=== PATIENT | male | born 1955 | race Caucasian/White ===

== ENCOUNTER 2017-03-06 15:34 | Inpatient (IN) | payer MEDICARE ==
[2017-03-06 17:21] LABS: Troponin I 0.145 ng/mL (< 0.028)
[2017-03-06] MEDS ORDERED: PROVENTIL INHALER 6.7 G (200 INHALATIONS) INH PRN (19:53)
[2017-03-06] MEDS ORDERED: Guaifenesin DM 100-10/5 ML UDCUP PO PRN (19:53)
[2017-03-06] MEDS ORDERED: cefTRIAXone\\ROCEPHIN 1 GM in Sodium Chloride 0.9% 100 ML IVPB SCH (19:53)
[2017-03-06] MEDS ORDERED: Acetaminophen 325 MG TAB ONE (20:06)
--- NOTE | 2017-03-06 22:45 | HP ---
REASON FOR ADMISSION: Acute congestive heart failure exacerbation with systolic dysfunction and ejec tion fraction of around 10%-15%, right lung pneumonia, acute kidney injury on top of chronic kidney d isease stage 3, demand ischemia. HISTORY OF PRESENT ILLNESS: The patient gives history of having shortness of breath and worsening lo wer extremity edema, which started on . This has been progressively getting worse. He has a lso been coughing up brown sputum. He had subjective fever at home and has not really measured any. He states he walks very little due to exertional shortness of breath even on a good day. He stays w ith his [id number] and his sister helps him out who lives next door. The patient states he follow s up with Dr. Borrego for Cardiology. He does not recall all of his medications. He has had his flu sh ot for this year. No chest pain or palpitations at present. PAST MEDICAL AND SURGICAL HISTORY: History of CHF with ejection fraction of around 10%-15%, chronic kidney disease stage 4, chronic anemia, coronary artery disease with prior stenting, paroxysmal atria l fibrillation on Coumadin, diabetes mellitus type 2 which is diet controlled, obstructive sleep apne a on CPAP, hypertension, dyslipidemia, defibrillator, COPD, history of CVA with no residual paralysis , hypothyroidism, prior ablation for atrial flutter, left transmetatarsal amputation, right knee repl acement, carpal tunnel release and right hand colonoscopy. PERSONAL HISTORY: Does not abuse alcohol or drugs, denies smoking now. FAMILY HISTORY: Mother in her 60s, has had history of CVA and coronary artery disease. Father in his 70s and has had similar history of strokes and coronary artery disease and he of thr oat cancer and was a heavy smoker. CURRENT MEDICATIONS: Please note, the patient does not recall his medications and will need to obtai n the same from his pharmacy. Per prior records, he is on allopurinol 300 mg p.o. daily, amiodarone 200 mg p.o. daily, aspirin 81 mg p.o. daily, calcitriol 0.25 mcg p.o. daily, Coreg 3.125 mg p.o. twic e daily, Lasix 40 mg p.o. daily, [place] p.r.n. for pain, Synthroid 112 mcg p.o. daily, omeprazole 20 m g p.o. daily, simvastatin 20 mg p.o. q.p.m., Coumadin 5 and 2.5 mg on scheduled days. ALLERGIES: Allergic to PLAVIX, IMDUR and PENICILLIN. REVIEW OF SYSTEMS: The following complete review of systems was negative, unless otherwise mentioned in the HPI or below: Constitutional: Weight loss or gain, ability to conduct usual activities. Skin: Rash, itching. Eyes: Double vision, pain. ENT/Mouth: Nose bleeding, neck stiffness, pain, tenderness. Cardiovascular: Palpitations, dyspnea on exertion, orthopnea. Respiratory: Shortness of breath, wheezing, cough, hemoptysis, fever or night sweats. Gastrointestinal: Poor appetite, abdominal pain, heartburn, nausea, vomiting, constipation, or diarr hea. Genitourinary: Urgency, frequency, dysuria, nocturia. Musculoskeletal: Pain, swelling. Neurologic/Psychiatric: Anxiety, depression. Allergy/Immunologic: Skin rash, bleeding tendency. PHYSICAL EXAMINATION: GENERAL: The patient is a 61-year-old male who is currently comfortable at 40 degrees head end eleva tion in the ER. VITAL SIGNS: Blood pressure 110/56, pulse 74 per minute, respiratory rate 24 per minute, temperature 98.9 degrees Fahrenheit, saturating 94% on 3 liters nasal cannula. NECK: Supple, no elevated JVD. HEENT: Eyes: Extraocular muscles intact. Pupils reacting to light. Oral cavity mucous membranes a re moist. No exudates or congestion. CARDIOVASCULAR: S1, S2 heard. Regular rhythm. RESPIRATORY: Air entry is decreased in the right infrascapular area. There are rales plus bilateral . Scattered rhonchi plus bilateral. ABDOMEN: Soft, bowel sounds heard. No tenderness, rigidity or guarding. EXTREMITIES: There is 2+ peripheral edema, no calf tenderness. VASCULAR SYSTEM: Peripheral pulses 1+ bilateral. No ischemic ulcerations or gangrene. CENTRAL NERVOUS SYSTEM: No gross focal deficits seen. Patient is lethargic, but oriented well. PSYCHIATRIC: The patient's mood is euthymic. No hallucinations or delusions. LABORATORY DATA AND X-RAY FINDINGS: EKG done shows paced rhythm at 73 beats per minute. There is LB BB seen. White count of 16, H&H is 13 and 43, platelet count 124, MCV is 92 with 93% neutrophils. P T/INR 32 and 3.0, PTT 40. Electrolytes are fairly stable. BUN 64, creatinine 2.9, serum bicarbonate is 24, glucose is 178, total bilirubin 1.5. BNP is 3710, albumin is 3.3. Troponin I is 0.09 and se cond set is 0.14, CK-MB is 1.5. Group A strep, throat swab is negative. Influenza A and B antigens are negative. Chest x-ray done showed a possible right lower lobe pneumonia. CLINICAL IMPRESSION AND PLAN: The patient will be admitted to telemetry for acute on chronic congest negra heart failure exacerbation with systolic dysfunction, right lung pneumonia. His clinical finding s and x-ray most likely is more to do with volume overload with his very poor ejection fraction of 10 %-15% based on prior echo. He will be gently diuresed. We will consult Dr. Mckinley for Nephrology with his chronic kidney disease and acute kidney injury, which might get worse with diuresis. He will be on ceftriaxone and Zithromax for his suspected pneumonia. We will also consult Dr. Borrego, his cardiol ogist for Cardiology. We will continue him on amiodarone, allopurinol, Coreg at a lower dose and sma ll dose of lisinopril along with Synthroid and simvastatin. We will continue to closely monitor his urine output and renal function during his stay here.
[2017-03-06] MEDS: Famotidine 20 MG TAB PO SCH (23:13)
[2017-03-06] MEDS: Simvastatin 20 MG TAB PO SCH (23:13)
[2017-03-06] MEDS: Carvedilol 3.125 MG TAB PO SCH (23:13)
[2017-03-06] MEDS: Docusate 100 MG CAP PO SCH (23:13)
[2017-03-06] MEDS: Heparin 5,000 UNITS/ML VIAL SC SCH (23:22)
[2017-03-06] MEDS: cefTRIAXone\\ROCEPHIN 1 GM, Syringe 0.4 ML in Sterile Water 9.6 ML SLOW IVP SCH (23:23)
[2017-03-06] MEDS: Azithromycin 500 MG in Sodium Chloride 0.9% 250 ML 250 ML IVPB SCH (23:23)
[2017-03-06] MEDS: Acetaminophen 325 MG TAB PO PRN (23:25)
[2017-03-07 05:52] LABS: Anion Gap 14 mmol/L (10-20); BUN (Urea Nitrogen) 70 mg/dL (8.4-25.7); Calc. Creatinine Clearance 42 mL/min (70-130); Calcium 8.9 mg/dL (7.8-10.44); Carbon Dioxide 29 mmol/L (22-29); Chloride 96 mmol/L (98-107); Estimated GFR-MDRD 20; Glucose 145 mg/dL (70-105); Potassium 4.5 mmol/L (3.5-5.1); Sodium 134 mmol/L (136-145)
[2017-03-07] MEDS ORDERED: Furosemide 40 MG/4 ML VIAL SLOW IVP SCH (06:00)
[2017-03-07 06:12] LABS: Band 9 % (5-11); Hemoglobin 12.5 g/dL (14.0-18.0); Lymphocytes 2 % (21-51); MDiff Complete? YES; Mean Corpuscular HGB CONC 29.8 g/dL (32.0-36.0); Mean Corpuscular Hemoglobin 27.5 pg (27.0-31.0); Mean Corpuscular Volume 92.3 fl (80.0-94.0); Mean Platelet Volume 10.7 fL (7.4-10.4); Monocytes 9 % (0-10); Neutrophil 80 % (42-75); PLT Morphology Comment Appears Decreased; Platelet Count 105 thou/uL (130-400); Red Blood Cell (RBC) Count 4.54 mill/uL (4.70-6.10); White Blood Cell (WBC) Count 16.4 thou/uL (4.8-10.8)
[2017-03-07] MEDS: Levothyroxine Sodium 112 MCG TAB PO SCH (06:39)
[2017-03-07] MEDS: Docusate 100 MG CAP PO SCH ×2 (08:24→21:56)
[2017-03-07] MEDS: Amiodarone 200 MG TAB PO SCH (08:24)
[2017-03-07] MEDS: Allopurinol 100 MG TAB PO SCH (08:24)
[2017-03-07] MEDS: Carvedilol 3.125 MG TAB PO SCH ×2 (08:25→21:55)
[2017-03-07] MEDS: Heparin 5,000 UNITS/ML VIAL SC SCH ×2 (08:25→21:56)
[2017-03-07] MEDS: Famotidine 20 MG TAB PO SCH ×2 (08:25→21:55)
[2017-03-07] MEDS ORDERED: Lisinopril 2.5 MG TAB PO SCH (09:00)
[2017-03-07] MEDS ORDERED: FLU VACC QS2017-18 36 mo. & older 0.5 ML SYRINGE IM ONE (09:00)
[2017-03-07] MEDS ORDERED: Allopurinol 300 MG TAB PO SCH (09:00)
--- NOTE | 2017-03-07 12:04 | PDOC.PN ---
- Subjective Encounter Start Date: 03/07/17 Encounter Start Time: 09:15 Subjective: breathing better, wearing cpap now -: no chest pain or palp - Objective Resuscitation Status: Resuscitation Status FULL:Full Resuscitation MAR Reviewed: Yes Vital Signs & Weight: Vital Signs (12 hours) Temp Pulse Resp BP Pulse Ox 03/07/17 11:30 98 F 71 18 116/68 97 03/07/17 08:00 98.8 F 77 18 98 03/07/17 07:48 98.8 F 77 18 120/69 98 03/07/17 04:37 97.9 F 72 20 127/77 98 Weight Weight 265 lb I&O: 03/06/17 03/07/17 03/08/17 06:59 06:59 06:59 Intake Total 290 Balance 290 Result Diagrams: 03/07/17 04:50 03/07/17 04:50 Additional Labs: Accuchecks 03/07/17 11:06 POC Glucose 151 H Phys Exam - Physical Examination HEENT: PERRLA, moist MMs Neck: no JVD, supple Respiratory: no wheezing, no rales Cardiovascular: RRR, no significant murmur Gastrointestinal: soft, non-tender, positive bowel sounds Musculoskeletal: pulses present, edema present Neurological: non-focal, moves all 4 limbs Psychiatric: A&O x 3 Dx/Plan (1) Acute exacerbation of CHF (congestive heart failure) Code(s): I50.9 - HEART FAILURE, UNSPECIFIED Status: Acute (2) CAD (coronary artery disease) Code(s): I25.10 - ATHSCL HEART DISEASE OF [place] CORONARY ARTERY W/O ANG PCTRS Status: Chronic Qualifiers: Coronary Disease-Associated Artery/Lesion type: [place] artery [place] vs. transplanted heart: [place] heart Associated angina: without angina Qualified Code(s): I25.10 - Atherosclerotic heart disease of [place] coronary artery without angina pectoris (3) CKD (chronic kidney disease) stage 4, GFR 15-29 ml/min Code(s): N18.4 - CHRONIC KIDNEY DISEASE, STAGE 4 (SEVERE) Status: Chronic (4) COPD (chronic obstructive pulmonary disease) Status: Chronic Qualifiers: COPD type: chronic bronchitis (5) HLD (hyperlipidemia) Code(s): E78.5 - HYPERLIPIDEMIA, UNSPECIFIED Status: Chronic Qualifiers: Hyperlipidemia type: unspecified Qualified Code(s): E78.5 - Hyperlipidemia , unspecified (6) HTN (hypertension) Code(s): I10 - ESSENTIAL (PRIMARY) HYPERTENSION Status: Chronic Qualifiers: Hypertension type: essential hypertension Qualified Code(s): I10 - Essential (primary) hypertension (7) Paroxysmal a-fib Code(s): I48.0 - PAROXYSMAL ATRIAL FIBRILLATION Status: Chronic Comment: will resume Coumadin (8) PNA (pneumonia) Code(s): J18.9 - PNEUMONIA, UNSPECIFIED ORGANISM Status: Acute Qualifiers: Pneumonia type: due to unspecified organism Laterality: right Lung location: lower lobe of lung Qualified Code(s): J18.1 - Lobar pneumonia, unspecified organism - Plan watch for renal function -: is on lasix 40 iv q12h -: on azithromycin and ceftriaxone -: to ambulate as tolerated -: accurate I/O chart * . Review of Systems - Medications/Allergies Allergies/Adverse Reactions: Allergies Allergy/AdvReac Type Severity Reaction Status Date / Time clopidogrel bisulfate Allergy Mild Verified 08/03/16 03:23 [From Plavix] isosorbide mononitrate Allergy Mild Verified 08/03/16 03:23 [From Imdur] Penicillins Allergy Mild Verified 08/03/16 03:23 Medications: Current Medications Acetaminophen (Tylenol) 650 mg PO Q4H PRN PRN Reason: Headache/Fever or Pain Last Admin: 03/06/17 23:25 Dose: 650 mg Albuterol Sulfate (Proventil Hfa) 2 puff INH Q4HR PRN PRN Reason: SOB &/or Wheezing Allopurinol (Zyloprim) 100 mg PO DAILY [facility] Last Admin: 03/07/17 08:24 Dose: 100 mg Amiodarone HCl (Cordarone) 200 mg PO DAILY [facility] Last Admin: 03/07/17 08:24 Dose: 200 mg Aspirin (Aspirin Chewable) 81 mg PO DAILY [facility] Last Admin: 03/07/17 08:24 Dose: 81 mg Carvedilol (Coreg) 3.125 mg PO BID [facility] Last Admin: 03/07/17 08:25 Dose: 3.125 mg Docusate Sodium (Colace) 100 mg PO BID [facility] Last Admin: 03/07/17 08:24 Dose: 100 mg Famotidine (Pepcid) 20 mg PO BID [facility] Last Admin: 03/07/17 08:25 Dose: 20 mg Furosemide (Lasix) 40 mg SLOW IVP DAILY [facility] Guaifenesin/Dextromethorphan (Robitussin Dm) 15 ml PO Q4H PRN PRN Reason: Cough Heparin Sodium (Porcine) (Heparin) 5,000 units SC BID [facility] Last Admin: 03/07/17 08:25 Dose: 5,000 units Azithromycin 500 mg/ Sodium (Chloride) 250 mls @ 250 mls/hr IVPB Q24HR [facility] Last Admin: 03/06/17 23:23 Dose: 250 mls Ceftriaxone Sodium 1 gm/ (Syringe 0.4 ml/ Sterile Water) 10 mls @ 120 mls/hr SLOW IVP 2100 [facility] Last Admin: 03/06/17 23:23 Dose: 10 mls Levothyroxine Sodium (Synthroid) 112 mcg PO 0600 [facility] Last Admin: 03/07/17 06:39 Dose: 112 mcg Simvastatin (Zocor) 20 mg PO QPM [facility] Last Admin: 03/06/17 23:13 Dose: Not Given
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
[2017-03-07] MEDS: Acetaminophen 325 MG TAB PO PRN (15:38)
--- NOTE | 2017-03-07 17:12 | CON ---
DATE OF CONSULTATION: 03/07/2017 PRIMARY INVESTOR RELATIONS MANAGER: Maranda Borrego M.D. REASON FOR CONSULTATION: Heart failure. HISTORY OF PRESENT ILLNESS: Mr. Taylor is a very pleasant 61-year-old white gentleman who comes to the hospital for increased shortness of breath. He has known EF of about 20%. He comes in as he juares s been noticing increasing shortness of breath for the last 2-3 days and came in. He was evaluated i n the ER, was found to have possible infiltrate on right lung base and was admitted for possible pneu monia and heart failure exacerbation. He has paroxysmal atrial fibrillation and is on chronic Coumad in for this. He for the last 4 days has been coughing up some brown sputum with some streaks of bloo d. He has received IV Lasix and has diuresed him already and is already feeling better. PAST MEDICAL HISTORY: 1. Ischemic cardiomyopathy, EF of 10%-20% in the past. 2. Chronic kidney disease stage 4. 3. Anemia of chronic disease. 4. Coronary artery disease, prior stenting. 5. Paroxysmal atrial fibrillation, on Coumadin. 6. Type 2 diabetes. 7. [place]AL[place], on CPAP. 8. Hypertension. 9. Hyperlipidemia. 10. AICD in place. 11. COPD. 12. CVA in the past. 13. Hypothyroidism. 14. Atrial flutter ablation in the past. PAST SURGICAL HISTORY: 1. Left transmetatarsal amputation. 2. Right knee replacement. 3. Carpal tunnel release in right hand. 4. Colonoscopy. OUTPATIENT MEDICATIONS: 1. Allopurinol. 2. Amiodarone 200 mg a day. 3. Aspirin 81 daily. 4. Calcitriol. 5. Coreg 3.125 mg b.i.d. 6. Lasix 40 mg a day. 7. Vest p.r.n. 8. Synthroid 112 mcg a day. 9. Omeprazole. 10. Simvastatin 20 mg at bedtime. 11. Coumadin. ALLERGIES: PLAVIX and PENICILLIN. REVIEW OF SYSTEMS: A 12-point review of systems was done and is all negative unless stated in the hi story of present illness. FAMILY HISTORY: Coronary artery disease in mother in her 60s. SOCIAL HISTORY: No alcohol, tobacco or drugs. PHYSICAL EXAMINATION: VITAL SIGNS: Temperature 98.1, pulse 60, respiration rate 20, satting 95% on 3 liters, blood pressur e 112/65. GENERAL: Awake, alert and oriented x3, in no distress. HEENT: Normocephalic, atraumatic. NECK: Supple. LUNGS: Actually are clear now. On my evaluation, he feels much better. CARDIOVASCULAR: S1, S2, no S3 or S4. No murmurs, no rubs. ABDOMEN: Soft, positive bowel sounds. EXTREMITIES: 1+ edema. SKIN: Warm and dry. LABORATORY WORK: Reviewed. White count 6, hemoglobin 12, hematocrit 41, platelet 105. Chemistries were reviewed. Creatinine of 3.21, BUN of 70. Chest x-ray was reviewed, pulmonary edema and possible right lower lobe infiltrate. ASSESSMENT AND PLAN: 1. Acute on chronic systolic heart failure. 2. Possible right lower lobe pneumonia. 3. Acute on chronic kidney injury. 4. History of severe dilated cardiomyopathy. 5. Presence of an automatic implantable cardioverter defibrillator. 6. Chronic anticoagulation with Coumadin. 7. Paroxysmal atrial fibrillation. PLAN: 1. Continue IV diuresis. He is already feeling much better. 2. IV antibiotics per primary team. 3. Continue amiodarone, beta khadar for now. 4. Dr. Borrego his primary emergency room doctor will follow up in the morning.
[2017-03-07] MEDS: Simvastatin 20 MG TAB PO SCH (21:55)
[2017-03-07] MEDS: Azithromycin 500 MG in Sodium Chloride 0.9% 250 ML 250 ML IVPB SCH (21:55)
[2017-03-07] MEDS: cefTRIAXone\\ROCEPHIN 1 GM, Syringe 0.4 ML in Sterile Water 9.6 ML SLOW IVP SCH (21:55)
[2017-03-08] MEDS: Acetaminophen 325 MG TAB PO PRN ×2 (01:06→20:36)
[2017-03-08] MEDS ORDERED: Mag-Al 1200 mg/1200 mg/30 ML UDCUP PO PRN (01:48)
[2017-03-08 05:16] LABS: Anion Gap 15 mmol/L (10-20); BUN (Urea Nitrogen) 72 mg/dL (8.4-25.7); Calc. Creatinine Clearance 43 mL/min (70-130); Calcium 8.5 mg/dL (7.8-10.44); Carbon Dioxide 24 mmol/L (22-29); Chloride 96 mmol/L (98-107); Estimated GFR-MDRD 20; Glucose 134 mg/dL (70-105); Potassium 3.9 mmol/L (3.5-5.1); Sodium 131 mmol/L (136-145)
[2017-03-08] MEDS: Levothyroxine Sodium 112 MCG TAB PO SCH (05:32)
[2017-03-08 05:58] LABS: Anisocytosis SLIGHT = 6-15 cells (100X) (0-5/hpf); Band 11 % (5-11); Hemoglobin 11.3 g/dL (14.0-18.0); Lymphocytes 2 % (21-51); MDiff Complete? YES; Mean Corpuscular HGB CONC 30.9 g/dL (32.0-36.0); Mean Corpuscular Hemoglobin 28.4 pg (27.0-31.0); Mean Platelet Volume 10.5 fL (7.4-10.4); Monocytes 6 % (0-10); Neutrophil 81 % (42-75); PLT Morphology Comment Appears Decreased; Platelet Count 92 thou/uL (130-400); RBC Distribution Width 17.3 % (11.5-14.5); Red Blood Cell (RBC) Count 3.96 mill/uL (4.70-6.10); White Blood Cell (WBC) Count 9.1 thou/uL (4.8-10.8)
[2017-03-08] MEDS: Allopurinol 100 MG TAB PO SCH (08:46)
[2017-03-08] MEDS: Furosemide 40 MG/4 ML VIAL SLOW IVP SCH (08:47)
[2017-03-08] MEDS: Famotidine 20 MG TAB PO SCH ×2 (08:47→20:36)
[2017-03-08] MEDS: Docusate 100 MG CAP PO SCH ×2 (08:47→20:36)
[2017-03-08] MEDS: Amiodarone 200 MG TAB PO SCH (08:47)
[2017-03-08] MEDS: Carvedilol 3.125 MG TAB PO SCH ×2 (08:47→20:36)
--- NOTE | 2017-03-08 08:47 | PRG ---
DATE OF SERVICE: 03/08/2017 SERVICE: Renal Medicine. SUBJECTIVE: Mr. Taylor is a 61-year-old white male with a known history of chronic renal failure. He was admitted for pneumonia. His creatinine was initially noted to be at 3.21. His diuretics has been adjusted downwards. Currently, he is feeling better. He denies any hemoptysis, fever or chill s. His breathing is actually improved. PHYSICAL EXAMINATION: VITAL SIGNS: Blood pressure is noted at 136/75, heart rate 70, respiratory rate 20, temperature 98.3 , pulse ox 98%. GENERAL: He is noted to be awake, alert, supine, comfortable, not in distress. SKIN: Adequate turgor. HEENT: He has pinkish conjunctivae, anicteric sclerae. NECK: No neck mass, no carotid bruits, no JVD. CHEST: No deformities. LUNGS: Decreased breath sounds. HEART: Normal sinus rhythm. No murmur, no gallops, no rubs. ABDOMEN: Globular, soft, nontender, no masses. EXTREMITIES: No edema, no deformities. MEDICATIONS: Of 03/08/2017, was reviewed. LABORATORY DATA: Of 03/08/2017, sodium 131, potassium 3.9, chloride 96, carbon dioxide 24, BUN 72, c reatinine 3.13, glucose 134, calcium 8.5. ASSESSMENT AND PLAN: 1. Acute kidney injury/chronic renal failure, stabilizing renal function. Creatinine noted at 3.13, which is stable. He is in the decreased dose of his furosemide. We will hold off any CONNIE inhibitor s for the moment. 2. Pneumonia, on IV antibiotics. Clinically much improved. Breathing is improved. Patient denies any fever. Overall, agree with current management. We will check base met and CBC in a.m.
[2017-03-08] MEDS: Heparin 5,000 UNITS/ML VIAL SC SCH ×2 (08:49→20:35)
--- NOTE | 2017-03-08 11:10 | PDOC.PN ---
- Subjective Encounter Start Date: 03/08/17 Encounter Start Time: 08:15 Subjective: breathing better, is wearing his cpap -: no chest pain or palp -: is amb in room - Objective Resuscitation Status: Resuscitation Status FULL:Full Resuscitation MAR Reviewed: Yes Vital Signs & Weight: Vital Signs (12 hours) Temp Pulse Resp BP Pulse Ox 03/08/17 08:45 98.3 F 70 20 03/08/17 08:00 98.3 F 70 20 136/75 98 03/07/17 23:56 99.2 F 72 16 101/64 98 Weight Weight 262 lb 2 oz I&O: 03/07/17 03/08/17 03/09/17 06:59 06:59 06:59 Intake Total 290 720 240 Output Total 1520 300 Balance 290 -800 -60 Result Diagrams: 03/08/17 04:36 03/08/17 04:36 Additional Labs: Accuchecks 03/08/17 03/08/17 03/07/17 06:11 00:48 16:47 POC Glucose 150 H 128 H 122 H 03/07/17 11:06 POC Glucose 151 H Phys Exam - Physical Examination HEENT: PERRLA, moist MMs Neck: no JVD, supple Respiratory: no wheezing, no rales Cardiovascular: RRR, no significant murmur Gastrointestinal: soft, non-tender, positive bowel sounds Musculoskeletal: no edema, pulses present Neurological: non-focal, moves all 4 limbs Psychiatric: A&O x 3 Dx/Plan (1) Acute exacerbation of CHF (congestive heart failure) Code(s): I50.9 - HEART FAILURE, UNSPECIFIED Status: Acute Qualifiers: Congestive heart failure type: systolic Qualified Code(s): I50.23 - Acute on chronic systolic (congestive) heart failure (2) CAD (coronary artery disease) Code(s): I25.10 - ATHSCL HEART DISEASE OF [place] CORONARY ARTERY W/O ANG PCTRS Status: Chronic Qualifiers: Coronary Disease-Associated Artery/Lesion type: [place] artery [place] vs. transplanted heart: [place] heart Associated angina: without angina Qualified Code(s): I25.10 - Atherosclerotic heart disease of [place] coronary artery without angina pectoris (3) CKD (chronic kidney disease) stage 4, GFR 15-29 ml/min Code(s): N18.4 - CHRONIC KIDNEY DISEASE, STAGE 4 (SEVERE) Status: Chronic (4) COPD (chronic obstructive pulmonary disease) Status: Chronic Qualifiers: COPD type: chronic bronchitis (5) HLD (hyperlipidemia) Code(s): E78.5 - HYPERLIPIDEMIA, UNSPECIFIED Status: Chronic Qualifiers: Hyperlipidemia type: unspecified Qualified Code(s): E78.5 - Hyperlipidemia , unspecified (6) HTN (hypertension) Code(s): I10 - ESSENTIAL (PRIMARY) HYPERTENSION Status: Chronic Qualifiers: Hypertension type: essential hypertension Qualified Code(s): I10 - Essential (primary) hypertension (7) Paroxysmal a-fib Code(s): I48.0 - PAROXYSMAL ATRIAL FIBRILLATION Status: Chronic Comment: will resume Coumadin (8) PNA (pneumonia) Code(s): J18.9 - PNEUMONIA, UNSPECIFIED ORGANISM Status: Acute Qualifiers: Pneumonia type: due to unspecified organism Laterality: right Lung location: lower lobe of lung Qualified Code(s): J18.1 - Lobar pneumonia, unspecified organism - Plan start back his coumadin -: scale down lasix due to ckd -: bmp in am, is on zithromax and ceftriaxone -: dc plan in am -: to ambulate more as tolerated, tx to medical floor * . Review of Systems - Medications/Allergies Allergies/Adverse Reactions: Allergies Allergy/AdvReac Type Severity Reaction Status Date / Time clopidogrel bisulfate Allergy Mild Verified 08/03/16 03:23 [From Plavix] isosorbide mononitrate Allergy Mild Verified 08/03/16 03:23 [From Imdur] Penicillins Allergy Mild Verified 08/03/16 03:23 Medications: Current Medications Acetaminophen (Tylenol) 650 mg PO Q4H PRN PRN Reason: Headache/Fever or Pain Last Admin: 03/08/17 01:06 Dose: 650 mg Al Hydroxide/Mg Hydroxide (Maalox) 30 ml PO Q4H PRN PRN Reason: Heartburn or Indigestion Albuterol Sulfate (Proventil Hfa) 2 puff INH Q4HR PRN PRN Reason: SOB &/or Wheezing Allopurinol (Zyloprim) 100 mg PO DAILY [facility] Last Admin: 03/08/17 08:46 Dose: 100 mg Amiodarone HCl (Cordarone) 200 mg PO DAILY [facility] Last Admin: 03/08/17 08:47 Dose: 200 mg Aspirin (Aspirin Chewable) 81 mg PO DAILY [facility] Last Admin: 03/08/17 08:47 Dose: 81 mg Carvedilol (Coreg) 3.125 mg PO BID [facility] Last Admin: 03/08/17 08:47 Dose: 3.125 mg Docusate Sodium (Colace) 100 mg PO BID [facility] Last Admin: 03/08/17 08:47 Dose: 100 mg Famotidine (Pepcid) 20 mg PO BID [facility] Last Admin: 03/08/17 08:47 Dose: 20 mg Furosemide (Lasix) 40 mg SLOW IVP DAILY [facility] Last Admin: 03/08/17 08:47 Dose: 40 mg Guaifenesin/Dextromethorphan (Robitussin Dm) 15 ml PO Q4H PRN PRN Reason: Cough Heparin Sodium (Porcine) (Heparin) 5,000 units SC BID [facility] Last Admin: 03/08/17 08:49 Dose: Not Given Azithromycin 500 mg/ Sodium (Chloride) 250 mls @ 250 mls/hr IVPB Q24HR [facility] Last Admin: 03/07/17 21:55 Dose: 250 mls Ceftriaxone Sodium 1 gm/ (Syringe 0.4 ml/ Sterile Water) 10 mls @ 120 mls/hr SLOW IVP 2100 [facility] Last Admin: 03/07/17 21:55 Dose: 10 mls Levothyroxine Sodium (Synthroid) 112 mcg PO 0600 [facility] Last Admin: 03/08/17 05:32 Dose: 112 mcg Simvastatin (Zocor) 20 mg PO QPM [facility] Last Admin: 03/07/17 21:55 Dose: 20 mg Sodium Chloride (Flush - Normal Saline) 10 ml IVF PRN PRN PRN Reason: Saline Flush Last Admin: 03/08/17 08:50 Dose: 10 ml
[2017-03-08 11:21] VITALS: BMI 39.8
--- NOTE | 2017-03-08 13:53 | PDOC.CTH ---
<Renee Monson - Last Filed: 03/08/17 13:54> Cardiology Progress Note - Subjective The pt seen and examined. No overnight events. No cardiac complaints. He still has SOSUA with walking to bathroom - Objective Vital Signs Temp Pulse Resp BP Pulse Ox 03/08/17 12:00 99.3 F 74 24 H 121/65 97 03/08/17 08:45 98.3 F 70 20 03/08/17 08:00 98.3 F 70 20 136/75 98 Admit Weight 265 lb Weight 262 lb 03/07/17 03/08/17 03/09/17 06:59 06:59 06:59 Intake Total 290 720 240 Output Total 1520 300 Balance 290 -800 -60 - Physical Examination General/Neuro: alert & oriented x3 Neck: no JVD present Lungs: CTA, other: Heart: RRR Abdomen: other: Extremities: other: (No edema; Lt total toe amputation) - Telemetry Telemetry Rhythm: AV paced - Labs Result Diagrams: 03/08/17 04:36 03/08/17 04:36 Troponin/CKMB Troponin I 0.145 ng/mL (< 0.028) H 03/06/17 16:46 - Assessment/Plan 1. Acute on Chronic systolic HF - Echo in 07/2016 showed EF 10-15%, severe LAE, mod-severe MR, and mild AR and TR; Stable with Lasix 40mg IV daily and BBlocker ; not on CONNIE due to CKD; cont. monitor 2. Afib/Aflutter with hx of Aflutter ablation - Paced; on Amiodarone and Coumadin; cont. monitor 3. Ischemic CMY with AICD - Per the pt's report, he never followed up with EP clinic for AICD interrogation; 4. RLL PNA - stable with IV antibiotics; managed by PCP 5. CAD w/ hx of stent - stable with current medication; on BBlocker and ASA; cont monitor on tele 6. 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 HTN - stable with current medication 8. WALTER with Cpap - using home CPap 9. COPD - on home O2 2LNC; 10. Hyperlipidemia - on Statin MAR reviewed Review of Systems - Review of Systems Constitutional: reports: no symptoms reported EENTM: reports: no symptoms reported Respiratory: reports: see HPI Cardiac (ROS): reports: no symptoms reported ABD/GI: reports: no symptoms reported : reports: no symptoms reported Musculoskeletal: reports: no symptoms reported <Mariya Borrego - Last Filed: 03/08/17 18:43> Cardiology Progress Note - Objective Vital Signs Temp Pulse Resp BP Pulse Ox 03/08/17 15:46 97.4 F L 70 18 129/76 98 03/08/17 12:00 99.3 F 74 24 H 121/65 97 03/08/17 08:45 98.3 F 70 20 03/08/17 08:00 98.3 F 70 20 136/75 98 Admit Weight 265 lb Weight 262 lb 0.2 oz 03/07/17 03/08/17 03/09/17 06:59 06:59 06:59 Intake Total 290 720 240 Output Total 1520 300 Balance 290 -800 -60 - Labs Result Diagrams: 03/08/17 04:36 03/08/17 04:36 Troponin/CKMB Troponin I 0.145 ng/mL (< 0.028) H 03/06/17 16:46 - Assessment/Plan Pt. seen and eval. by me. 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 The AICD was interrogated today and the function is normal. He is feeling better this PM.
[2017-03-08 14:18] LABS: INR-International Normal Ratio 2.4; Prothrombin Time 27.4 SEC (12.0-14.7)
[2017-03-08] MEDS ORDERED: Warfarin Sodium 2.5 MG TAB PO SCH (17:00)
[2017-03-08] MEDS ORDERED: Warfarin Sodium 5 MG TAB PO SCH ×2 (17:00)
[2017-03-08] MEDS: Simvastatin 20 MG TAB PO SCH (20:35)
[2017-03-09] MEDS: Levothyroxine Sodium 112 MCG TAB PO SCH (05:24)
[2017-03-09 05:39] LABS: INR-International Normal Ratio 2.1; Prothrombin Time 24.7 SEC (12.0-14.7)
[2017-03-09 05:40] LABS: PTT 56.4 SEC (22.9-36.1)
[2017-03-09 05:49] LABS: #Lymphocytes 0.5 thou/uL (1.20-3.40); #Monocytes 0.6 thou/uL (0.11-0.59); #Neutrophils 6.1 thou/uL (1.40-6.50); %Eosinophils 0.6 % (0.0-10.0); %Lymphocytes 6.4 % (21.0-51.0); %Monocytes 8.6 % (0.0-10.0); %Neutrophils 84.5 % (42.0-75.0); Mean Corpuscular HGB CONC 30.6 g/dL (32.0-36.0); Mean Corpuscular Hemoglobin 28.1 pg (27.0-31.0); Mean Corpuscular Volume 91.7 fl (80.0-94.0); Mean Platelet Volume 10.7 fL (7.4-10.4); Platelet Count 92 thou/uL (130-400); RBC Distribution Width 17.1 % (11.5-14.5); Red Blood Cell (RBC) Count 3.92 mill/uL (4.70-6.10); White Blood Cell (WBC) Count 7.2 thou/uL (4.8-10.8)
[2017-03-09 05:59] LABS: Anion Gap 16 mmol/L (10-20); BUN (Urea Nitrogen) 68 mg/dL (8.4-25.7); Calc. Creatinine Clearance 43 mL/min (70-130); Calcium 8.6 mg/dL (7.8-10.44); Carbon Dioxide 22 mmol/L (22-29); Chloride 97 mmol/L (98-107); Estimated GFR-MDRD 21; Glucose 133 mg/dL (70-105); Potassium 3.5 mmol/L (3.5-5.1); Sodium 131 mmol/L (136-145)
[2017-03-09] MEDS: Docusate 100 MG CAP PO SCH (08:47)
[2017-03-09] MEDS: Carvedilol 3.125 MG TAB PO SCH (08:47)
[2017-03-09] MEDS: Famotidine 20 MG TAB PO SCH (08:47)
[2017-03-09] MEDS: Amiodarone 200 MG TAB PO SCH (08:47)
[2017-03-09] MEDS: Allopurinol 100 MG TAB PO SCH (08:47)
[2017-03-09] MEDS: Heparin 5,000 UNITS/ML VIAL SC SCH (08:48)
[2017-03-09] MEDS: Furosemide 40 MG/4 ML VIAL SLOW IVP SCH (08:48)
[2017-03-09] MEDS ORDERED: Cefdinir 300 MG CAP PO SCH (09:00)
--- NOTE | 2017-03-09 10:31 | PRG ---
DATE OF SERVICE: 03/09/2017 SUBJECTIVE: Mr. Taylor is a 61-year-old white male with known history of chronic renal failure and admitted for pneumonia. He was started on IV antibiotics. He is clinically much improved. We will also consulted because of his elevated creatinine. His creatinine was said to have initially peaked at 3.21, which is slowly improved with conservative management. His CONNIE inhibitors and diuretics we re placed on hold temporarily. This morning he has no new complaints. He denies any chest pain or shortness of breath. He is feeli ng much better. OBJECTIVE: VITAL SIGNS: Blood pressure is 121/76, heart rate 74, respiratory rate 20, temperature 98.1, pulse o x 98%. GENERAL: Awake, alert, comfortable, obese. SKIN: Adequate turgor. HEENT: Pinkish conjunctivae, anicteric sclerae. NECK: No neck mass, no carotid bruits, no JVD. CHEST: No deformities. LUNGS: Clear breath sounds. No wheezing, no crackles. HEART: Normal sinus rhythm. No murmur, no gallops, no rubs. ABDOMEN: Globular, soft, nontender, no masses. EXTREMITIES: Trace edema. MEDICATIONS: 03/09/2017 was reviewed. LABORATORY DATA: 03/09/2017 - White count 7.2, hemoglobin 11. Sodium 131, potassium 3.9, chloride 9 6, carbon dioxide 24, BUN 72, creatinine 3.1, calcium 8.5. ASSESSMENT AND PLAN: 1. Acute kidney injury on top of his chronic renal failure, stabilizing renal function. Creatinine 3.1 was noted yesterday. No indication for any dialytic intervention. We can consider resuming back his home diuretics. We will follow this patient up at the renal clinic if discharged today. 2. Pneumonia, much improved on p.o. antibiotics. Case discussed at length with Dr. Hogan.
[2017-03-09 11:28] VITALS: BP 101/60; TEMP 97.7
[2017-03-09] MEDS: Acetaminophen 325 MG TAB PO PRN (12:03)
--- NOTE | 2017-03-09 13:44 | PDOC.PN ---
- Subjective Encounter Start Date: 03/09/17 Encounter Start Time: 07:40 Subjective: breathing better, no sob or chest pain -: is amb in room - Objective Resuscitation Status: Resuscitation Status FULL:Full Resuscitation MAR Reviewed: Yes Vital Signs & Weight: Vital Signs (12 hours) Temp Pulse Resp BP Pulse Ox 03/09/17 11:20 97.7 F 70 16 101/60 97 03/09/17 08:00 98.1 F 74 20 121/76 98 03/09/17 04:00 98.0 F 69 18 121/79 100 Weight Admit Weight 265 lb Weight 259 lb 7 oz I&O: 03/08/17 03/09/17 03/10/17 06:59 06:59 06:59 Intake Total 720 480 Output Total 1520 300 Balance -800 180 Result Diagrams: 03/09/17 04:42 03/09/17 04:42 Additional Labs: Accuchecks 03/09/17 03/09/17 03/08/17 10:40 05:03 20:11 POC Glucose 202 H 149 H 187 H 03/08/17 17:31 POC Glucose 135 H Phys Exam - Physical Examination HEENT: PERRLA, moist MMs Neck: no JVD, supple Respiratory: no wheezing, no rales Cardiovascular: RRR, no significant murmur Gastrointestinal: soft, non-tender, positive bowel sounds Musculoskeletal: no edema, pulses present Neurological: non-focal, moves all 4 limbs Psychiatric: A&O x 3 Dx/Plan (1) Acute exacerbation of CHF (congestive heart failure) Code(s): I50.9 - HEART FAILURE, UNSPECIFIED Status: Acute Qualifiers: Congestive heart failure type: systolic Qualified Code(s): I50.23 - Acute on chronic systolic (congestive) heart failure (2) CAD (coronary artery disease) Code(s): I25.10 - ATHSCL HEART DISEASE OF [place] CORONARY ARTERY W/O ANG PCTRS Status: Chronic Qualifiers: Coronary Disease-Associated Artery/Lesion type: [place] artery [place] vs. transplanted heart: [place] heart Associated angina: without angina Qualified Code(s): I25.10 - Atherosclerotic heart disease of [place] coronary artery without angina pectoris (3) CKD (chronic kidney disease) stage 4, GFR 15-29 ml/min Code(s): N18.4 - CHRONIC KIDNEY DISEASE, STAGE 4 (SEVERE) Status: Chronic (4) COPD (chronic obstructive pulmonary disease) Status: Chronic Qualifiers: COPD type: chronic bronchitis (5) HLD (hyperlipidemia) Code(s): E78.5 - HYPERLIPIDEMIA, UNSPECIFIED Status: Chronic Qualifiers: Hyperlipidemia type: unspecified Qualified Code(s): E78.5 - Hyperlipidemia , unspecified (6) HTN (hypertension) Code(s): I10 - ESSENTIAL (PRIMARY) HYPERTENSION Status: Chronic Qualifiers: Hypertension type: essential hypertension Qualified Code(s): I10 - Essential (primary) hypertension (7) Paroxysmal a-fib Code(s): I48.0 - PAROXYSMAL ATRIAL FIBRILLATION Status: Chronic Comment: will resume Coumadin (8) PNA (pneumonia) Code(s): J18.9 - PNEUMONIA, UNSPECIFIED ORGANISM Status: Acute Qualifiers: Pneumonia type: due to unspecified organism Laterality: right Lung location: lower lobe of lung Qualified Code(s): J18.1 - Lobar pneumonia, unspecified organism - Plan hemostable -: dc pt home -: lab work q weekly x2, to f/u with as adv * .
--- NOTE | 2017-03-09 23:53 | DIS ---
DATE OF ADMISSION: 03/06/2017 DATE OF DISCHARGE: 03/09/2017 DISCHARGE DISPOSITION: Home. PRIMARY DISCHARGE DIAGNOSES: Acute congestive heart failure exacerbation with systolic dysfunction, resolving. SECONDARY DISCHARGE DIAGNOSES: Coronary artery disease; chronic kidney disease, stage 4; chronic obs tructive pulmonary disease; hypertension; dyslipidemia; paroxysmal atrial fibrillation; pneumonia, re solving. PROCEDURES DONE DURING HOSPITALIZATION: Patient has had chest x-ray done on the day of admission, wh ich showed right lower lobe pneumonia. Blood cultures x2 no growth. Strep throat was negative. Inf luenza A and B antigens were negative. Urine culture was contaminated. Had a white count of 16 with discharge numbers of 7. Discharge PT/INR is 24 and 2.1. Discharge BUN and creatinine is 68 and 3.0 , discharge serum bicarbonate is 22. BNP was 3710. Troponin I was indeterminate, peaking up to 0.14 , CK-MB 1.5. DISCHARGE MEDICATIONS: Albuterol nebulizer q.6 hourly p.r.n., allopurinol 100 mg p.o. daily, amiodar one 200 mg p.o. daily, aspirin 81 mg p.o. daily, calcitriol 0.25 mcg p.o. daily, Coreg 3.125 mg p.o. twice daily, Omnicef 300 mg p.o. daily for another 5 days, Lasix 40 mg p.o. daily, gabapentin 200 mg p.o. twice daily, [place] p.r.n. for pain, Synthroid 112 mcg p.o. daily, omeprazole 20 mg p.o. daily, s imvastatin 20 mg p.o. q.p.m., Coumadin 5 and 2.5 mg to alternate as before. ALLERGIES: PENICILLIN, IMDUR, and PLAVIX. INPATIENT CONSULTS: Dr. Jacinto for cardiology and Dr. Mckinley for nephrology. BRIEF COURSE DURING HOSPITALIZATION: Patient initially got admitted with complaints of shortness of breath and worsening lower extremity edema. He was essentially admitted for acute congestive heart f ailure exacerbation with systolic dysfunction and prior EF of 10%-15% and questionable right lung pne umonia. He was gently diuresed during his stay. Patient has known history of chronic kidney disease , stage 3-[address] Mckinley was consulted in view of possible worsening with diuresis. He has had consul tation with Dr. Borrego/Ophelia for cardiology as well. Patient has done remarkably well with diuresis. His discharge weight is 259 pounds and has lost nearly 6 pounds during his brief stay here. Prior t o discharge, he is ambulating well and is not requiring supplemental oxygen. He needs to continue Om nicef as prescribed for another 5 days for his pneumonia. Patient also needs to have metabolic panel done weekly starting on the of this month and 03/23/2017. The results will be faxed to Dr. Mckinley 's office and Dr. Aguayo's office for review of his renal function. Please note, patient is back on 40 mg oral Lasix. No CONNIE or ARBS were given in view of his chronic kidney disease, stage 4. Please see a [id number] documentation on [employer] for the day of discharge.
[2017-03-10] MEDS ORDERED: Warfarin Sodium 5 MG TAB PO SCH (17:00)
--- NOTE | 2017-03-20 14:50 | EKG ---
Test Reason : CHF Blood Pressure : / mmHG Vent. Rate : 073 BPM Atrial Rate : 073 BPM P-R Int : 222 ms QRS Dur : 184 ms QT Int : 492 ms P-R-T Axes : 079 -46 115 degrees QTc Int : 542 ms Atrial-paced rhythm with prolonged AV conduction Left bundle branch block Abnormal ECG Confirmed by RUBIO BARAHONA DO ([id number]), acquisitions editor KENTON ALLEN ([id number]) on 03/20/2017 2:50:06 PM Referred By: Confirmed By:RUBIO BARAHONA DO
== END 2017-03-09 13:15 | disposition home or self-care (01) | DRG 291 ==
LOC: ERS 15:34 → 2SE 19:47 → T4-B 03-08 15:59
PROVIDERS: ADMIT Internal Medicine; ATTEND Internal Medicine
DX: I13.0 Hypertensive heart and chronic kidney disease with heart failure and stage 1 through stage 4 chronic kidney disease, or unspecified chronic kidney disease (principal); I50.23 Acute on chronic systolic (congestive) heart failure; J18.9 Pneumonia, unspecified organism; N17.9 Acute kidney failure, unspecified; I24.8 Other forms of acute ischemic heart disease; I48.0 Paroxysmal atrial fibrillation; J44.0 Chronic obstructive pulmonary disease with (acute) lower respiratory infection; Z79.01 Long term (current) use of anticoagulants; I25.10 Atherosclerotic heart disease of native coronary artery without angina pectoris; E03.9 Hypothyroidism, unspecified; G47.33 Obstructive sleep apnea (adult) (pediatric); N18.9 Chronic kidney disease, unspecified; E78.5 Hyperlipidemia, unspecified; Z95.810 Presence of automatic (implantable) cardiac defibrillator; Z96.651 Presence of right artificial knee joint; Z89.432 Acquired absence of left foot; Z86.73 Personal history of transient ischemic attack (TIA), and cerebral infarction without residual deficits; Z88.0 Allergy status to penicillin; Z88.8 Allergy status to other drugs, medicaments and biological substances; Z82.3 Family history of stroke; Z82.49 Family history of ischemic heart disease and other diseases of the circulatory system; Z80.8 Family history of malignant neoplasm of other organs or systems
CPT/HCPCS: 36415; 36416; 80048; 85025; 85610; 85730; 93005; 96365; 96366; A4216; J0456; J0696; J1644; J1940; J1956; J7050

== ENCOUNTER 2017-07-18 18:44 | Inpatient (IN) | payer MEDICARE ==
[2017-07-18] MEDS ORDERED: Labetalol HCl 100 MG/20 ML VIAL ONE (19:15)
[2017-07-18] MEDS ORDERED: HumaLOG 300 UNITS/3 ML VIAL SC PRN ×2 (20:27)
[2017-07-18] MEDS ORDERED: Dextrose 50% Abboject 50 ML SYRINGE SLOW IVP PRN (20:27)
[2017-07-18] MEDS ORDERED: Dextrose 5% in Water 1,000 ML IV PRN (20:27)
[2017-07-18] MEDS ORDERED: Milk Of Magnesia 30 ML UDCUP PO PRN (20:30)
[2017-07-18] MEDS ORDERED: Acetaminophen 325 MG TAB PO PRN (20:30)
[2017-07-18 20:41] LABS: Troponin I 0.043 ng/mL (< 0.028)
[2017-07-18 22:08] VITALS: BMI 43.7
[2017-07-18] MEDS: Carvedilol 3.125 MG TAB PO SCH (22:19)
[2017-07-18] MEDS: Docusate 100 MG CAP PO SCH (22:20)
[2017-07-18 23:27] LABS: Troponin I 0.039 ng/mL (< 0.028)
--- NOTE | 2017-07-19 01:45 | HP ---
PRIMARY CARE PHYSICIAN: Darwin Moseley M.D. PRESENTING COMPLAINT: Shortness of breath. HISTORY OF PRESENT ILLNESS: Mr. Douglas Taylor is a 62-year-old male with a past medical history of chronic hypoxic respiratory failure; systolic CHF; COPD; CKD, stage 4; CAD with history of stenting; atrial fibrillation; paroxysmal; type 2 diabetes mellitus; WALTER; hypertension; dyslipidemia; history of CVA; and hypothyroidism; who presented to the emergency room with complaints of progressively wors ening shortness of breath for the past day, associated with chest pain. He also has some lower extre mity edema. He denies nausea, vomiting, diarrhea, abdominal pain. He has no urinary symptoms. He h as no palpitations, PND, orthopnea. He has no fevers or chills. He was seen at [facility] wher e he was found to be in heart failure - he had pulmonary vascular congestion on chest x-ray, evidence of weight gain. He was started on IV furosemide. He received 80 mg of IV furosemide in the ER at [facility]. The patient has reportedly taking another 120 mg p.o. of Lasix. PAST MEDICAL HISTORY: As stated in the HPI. PAST SURGICAL HISTORY: Stent placements, pacemaker, ablation, vocal cord surgery, right knee surgery . FAMILY HISTORY: Reviewed and not contributory. SOCIAL HISTORY: Former smoker. Does not drink alcohol or use illicit drugs. ALLERGIES: PLAVIX, IMDUR, PENICILLIN. HOME MEDICATIONS: Albuterol sulfate 0.3 mg nebulizer q.6 hours p.r.n., albuterol sulfate inhaler 2 p uffs inhaled q.4 hours p.r.n., allopurinol 100 mg daily, amiodarone 200 mg daily, aspirin 81 mg daily , calcitriol 0.25 mcg daily, carvedilol 3.25 mg b.i.d., Omnicef 300 mg daily, furosemide 40 mg daily, gabapentin 200 mg b.i.d., hydrocodone/acetaminophen 1-2 tablets p.o. p.r.n. for pain, levothyroxine 112 mcg daily, mometasone 110 mcg a puff inhaled, omeprazole 20 mg daily, simvastatin 20 mg q.p.m. C oumadin 5 mg daily on Wednesdays, 2.5 mg on other days. REVIEW OF SYSTEMS: All systems reviewed and negative except as stated in HPI. PHYSICAL EXAMINATION: VITAL SIGNS: Blood pressure 113/69, respiratory rate 18, pulse rate 71, oxygen saturation 94% on 2 l iters of oxygen. GENERAL: Not in acute distress, sitting comfortably in bed, on nasal cannula oxygen. HEENT: Normocephalic, atraumatic. Nonpale, anicteric. PERRLA, EOMI. Moist mucous membranes. NECK: Supple, full range of movements. No JVD. CARDIOVASCULAR: S1 and S2 only with irregularly irregular rate. No murmurs, rubs or gallops. RESPIRATORY: Basilar crackles bilaterally. MUSCULOSKELETAL: Minimal bilateral lower extremity edema. ABDOMEN: Soft, nontender, nondistended. Bowel sounds normoactive. SKIN: Warm, dry, and well perfused. NEUROLOGIC: Alert and well oriented to time, place and person. No focal deficit. PSYCHIATRIC: Normal mood and affect. LABORATORY DATA: CBC, the patient has a creatinine of 3.48. Hematology is largely unremarkable. est x-ray showed cardiomegaly with bilateral vascular congestion, also showed his left implantable ca rdioverter defibrillator. No evidence of pneumonia. EKG, no signs of acute ischemia. ASSESSMENT AND PLAN: 1. Acute systolic congestive heart failure: The patient has been started on IV furosemide. We will monitor his ins and outs, weigh daily and continue IV furosemide. We will consult Cardiology as wel yanna and monitor on telemetry. We will resume home medications once verified. Last echocardiogram done showed ejection fraction of 10% to 15%, this was done in 07/2016. 2. Chronic respiratory failure: Likely a combination of congestive heart failure and chronic obstru ctive pulmonary disease. We will continue oxygen supplementation. 3. Type 2 diabetes mellitus: We will continue his home regimen and placed on sliding scale insulin, hypoglycemia protocol, diabetic diet and fingerstick glucose before meals and at bedtime. 4. Hypothyroidism: We will obtain a TSH and resume levothyroxine. 5. Atrial fibrillation, paroxysmal: He is currently rate controlled. We will resume carvedilol, am iodarone and Coumadin. Monitor INR daily. 6. Chronic kidney disease, stage 4: The patient's renal function will be monitored, especially sinc e he is on furosemide daily. 7. Coronary artery disease, status post stent placement: He is currently chest pain free. We will place on nitroglycerin p.r.n. and monitor and trend troponin. 8. Hypertension: Currently well controlled. We will resume home medication. 9. History of cerebrovascular accident: No residual deficits. 10. Deep venous thrombosis prophylaxis: Coumadin. CODE STATUS: FULL CODE.
[2017-07-19] MEDS: Furosemide 40 MG/4 ML VIAL SLOW IVP SCH ×2 (05:32→15:20)
[2017-07-19 05:53] LABS: INR-International Normal Ratio 2.5; Prothrombin Time 28.3 SEC (12.0-14.7)
[2017-07-19 05:58] LABS: Anion Gap 12 mmol/L (10-20); BUN (Urea Nitrogen) 48 mg/dL (8.4-25.7); Calc. Creatinine Clearance 41 mL/min (70-130); Calcium 9.5 mg/dL (7.8-10.44); Carbon Dioxide 27 mmol/L (23-31); Chloride 105 mmol/L (98-107); Estimated GFR-MDRD 19; Glucose 109 mg/dL (80-115); Magnesium 2.5 mg/dL (1.6-2.6); Potassium 3.9 mmol/L (3.5-5.1); Sodium 140 mmol/L (136-145)
[2017-07-19 06:01] LABS: Hemoglobin A1c 5.5 % (4.0-6.0)
[2017-07-19] MEDS ORDERED: SENNOSIDES 15 MG PO PRN (09:07)
[2017-07-19] MEDS ORDERED: Non-Formulary Item 1 EACH (Albuterol Sulfate [Albuterol Sulfate Neb] 0.63 MG) NEB PRN (09:07)
[2017-07-19] MEDS ORDERED: HYDROcodone/Acetaminophen 7.5/325 mg Tablet PO PRN ×2 (09:07→09:25)
[2017-07-19] MEDS ORDERED: METHOCARBAMOL 750 MG PO PRN (09:07)
[2017-07-19] MEDS ORDERED: Warfarin Sodium 5 MG TAB PO SCH ×2 (09:15→17:00)
[2017-07-19] MEDS ORDERED: Albuterol Sulfate 1.25 MG/3 ML NEB NEB PRN (09:27)
[2017-07-19] MEDS ORDERED: Methocarbamol 500 MG TAB PO PRN (09:28)
[2017-07-19] MEDS ORDERED: Senokot 8.6 MG TAB PO PRN (09:29)
[2017-07-19] MEDS: Docusate 100 MG CAP PO SCH ×2 (09:53→20:38)
[2017-07-19] MEDS: Carvedilol 3.125 MG TAB PO SCH ×2 (09:53→20:39)
--- NOTE | 2017-07-19 12:50 | PDOC.PN ---
- Subjective Encounter Start Date: 07/19/17 Encounter Start Time: 12:49 Patient seen and evaluated following admission for Acute systolic CHF exacerbation. Doing much better today and has no complaints. No acute events overnight. - Objective MAR Reviewed: Yes Vital Signs & Weight: Vital Signs (12 hours) Temp Pulse Resp BP Pulse Ox 07/19/17 11:43 71 20 124/68 97 07/19/17 09:47 97.4 F L 70 18 128/78 97 07/19/17 04:15 97.5 F L 75 20 132/76 93 L Weight Weight 275 lb I&O: 07/18/17 07/19/17 07/20/17 06:59 06:59 06:59 Intake Total 500 Output Total 1800 Balance -1300 Result Diagrams: 07/19/17 05:23 Additional Labs: Accuchecks 07/19/17 07/18/17 11:23 21:59 POC Glucose 99 184 H Phys Exam - Physical Examination Constitutional: NAD HEENT: moist MMs, sclera anicteric, TM's clear Neck: no JVD, supple, full ROM Respiratory: no wheezing, no rales, no rhonchi, clear to auscultation bilateral Cardiovascular: RRR, no significant murmur, no rub Gastrointestinal: soft, non-tender, no distention, positive bowel sounds Musculoskeletal: no edema, pulses present L TMA Neurological: non-focal, moves all 4 limbs Psychiatric: normal affect, A&O x 3 Skin: no rash, normal turgor Dx/Plan (1) Acute exacerbation of CHF (congestive heart failure) Code(s): I50.9 - HEART FAILURE, UNSPECIFIED Status: Acute Qualifiers: Qualified Code(s): I50.23 - Acute on chronic systolic (congestive) heart failure Comment: Improving with diuresis. ECHO ordered. Will continue furosemide and f/ u cardiology recs. (2) Chronic respiratory failure with hypoxia Code(s): J96.11 - CHRONIC RESPIRATORY FAILURE WITH HYPOXIA Status: Chronic Comment: Continue O2 supplementation. (3) CAD (coronary artery disease) Code(s): I25.10 - ATHSCL HEART DISEASE OF [place] CORONARY ARTERY W/O ANG PCTRS Status: Chronic Qualifiers: Coronary Disease-Associated Artery/Lesion type: [place] artery [place] vs. transplanted heart: [place] heart Associated angina: without angina Qualified Code(s): I25.10 - Atherosclerotic heart disease of [place] coronary artery without angina pectoris Comment: Stable. Chest pain free. Resume home medications. (4) CKD (chronic kidney disease) stage 4, GFR 15-29 ml/min Code(s): N18.4 - CHRONIC KIDNEY DISEASE, STAGE 4 (SEVERE) Status: Chronic Comment: Stable and around his baseline. (5) COPD (chronic obstructive pulmonary disease) Status: Chronic Qualifiers: COPD type: chronic bronchitis Comment: St[place]. Not in acute exacerbation. (6) CVA (cerebral infarction) Code(s): I63.9 - CEREBRAL INFARCTION, UNSPECIFIED Status: Chronic Qualifiers: Cerebral infarction mechanism: unspecified mechanism Qualified Code(s): I63.9 - Cerebral infarction, unspecified Comment: Stable and at his baseline/. (7) Chronic anticoagulation Code(s): Z79.01 - CARE HOME (CURRENT) USE OF ANTICOAGULANTS Status: Chronic Comment: for PAF (8) HLD (hyperlipidemia) Code(s): E78.5 - HYPERLIPIDEMIA, UNSPECIFIED Status: Chronic Qualifiers: Hyperlipidemia type: unspecified Qualified Code(s): E78.5 - Hyperlipidemia , unspecified (9) HTN (hypertension) Code(s): I10 - ESSENTIAL (PRIMARY) HYPERTENSION Status: Chronic Qualifiers: Hypertension type: essential hypertension Qualified Code(s): I10 - Essential (primary) hypertension Comment: Fairly well controlled. Continue home medications. (10) Paroxysmal a-fib Code(s): I48.0 - PAROXYSMAL ATRIAL FIBRILLATION Status: Chronic Comment: Rate controlled. Continue Coumadin. Daily INR. He is therapeutic. (11) WALTER on CPAP Code(s): G47.33 - OBSTRUCTIVE SLEEP APNEA (ADULT) (PEDIATRIC); Z99.89 - DEPENDENCE ON OTHER ENABLING MACHINES AND DEVICES Status: Chronic - Plan cont current plan of care, DVT proph w/heparin * . Review of Systems - Medications/Allergies Allergies/Adverse Reactions: Allergies Allergy/AdvReac Type Severity Reaction Status Date / Time clopidogrel bisulfate Allergy Mild Verified 07/18/17 22:42 [From Plavix] isosorbide mononitrate Allergy Mild Verified 07/18/17 22:42 [From Imdur] Penicillins Allergy Mild Verified 07/18/17 22:42 tizanidine Allergy Verified 07/18/17 22:42 Medications: Current Medications Acetaminophen (Tylenol) 650 mg PO Q4H PRN PRN Reason: Headache/Fever or Pain Hydrocodone Bitart/Acetaminophen ([place] 7.5/325) 1 tab PO Q6H PRN PRN Reason: Pain Albuterol Sulfate (Albuterol Sulfate) 0.63 mg NEB Q6H PRN PRN Reason: SOB Allopurinol (Zyloprim) 300 mg PO DAILY [facility] Amiodarone HCl (Cordarone) 200 mg PO DAILY [facility] Aspirin (Aspirin Chewable) 81 mg PO DAILY [facility] Atorvastatin Calcium (Lipitor) 10 mg PO HS [facility] Calcitriol (Rocaltrol) 0.25 mcg PO DAILY [facility] Carvedilol (Coreg) 3.125 mg PO BID [facility] Last Admin: 07/19/17 09:53 Dose: 3.125 mg Cyanocobalamin (Vitamin B-12) 1,000 mcg PO DAILY [facility] Dextrose/Water (Dextrose 50%) 25 gm SLOW IVP PRN PRN PRN Reason: Hypoglycemia Docusate Sodium (Colace) 100 mg PO BID [facility] Last Admin: 07/19/17 09:53 Dose: 100 mg Furosemide (Lasix) 40 mg SLOW IVP 0600,1400 [facility] Last Admin: 07/19/17 05:32 Dose: 40 mg Gabapentin (Neurontin) 200 mg PO BID [facility] Glucagon (Glucagon) 1 mg IM PRN PRN PRN Reason: Hypoglycemia Dextrose/Water (D5w) 1,000 mls @ 0 mls/hr IV .Q0M PRN; As Directed PRN Reason: Hypoglycemia Insulin Human Lispro (Humalog) 0 units SC .BEDTIME SLIDING SC PRN PRN Reason: Bedtime Correctional Scale Insulin Human Lispro (Humalog) 0 units SC .MILD SLIDING SCALE PRN PRN Reason: Mild Correctional Scale Levothyroxine Sodium (Synthroid) 112 mcg PO DAILY [facility] Magnesium Hydroxide (Milk Of Magnesium) 30 ml PO DAILYPRN PRN PRN Reason: Constipation Methocarbamol (Robaxin) 750 mg PO BIDPRN PRN PRN Reason: Pain Pantoprazole Sodium (Protonix) 40 mg PO DAILY [facility] Senna (Senokot) 2 tab PO HSPRN PRN PRN Reason: Constipation Sodium Chloride (Flush - Normal Saline) 10 ml IVF Q12HR [facility] Last Admin: 07/18/17 22:19 Dose: 10 ml Sodium Chloride (Flush - Normal Saline) 10 ml IVF PRN PRN PRN Reason: Saline Flush Warfarin Sodium (Coumadin) 5 mg PO We@1700 GAMALIEL Warfarin Sodium (Coumadin) 2.5 mg PO SuMoTuThFrSa@1700 GAMALIEL
[2017-07-19] MEDS ORDERED: Warfarin Sodium 2.5 MG TAB PO SCH (17:00)
--- NOTE | 2017-07-19 17:02 | CON ---
DATE OF CONSULTATION: 07/19/2017 REASON FOR CONSULTATION: Heart failure. HISTORY OF PRESENT ILLNESS: Mr. Taylor is a pleasant 62-year-old white gentleman who comes to the hospital for shortness of breath. He states he has gained about 14 pounds in the last few days and w as getting more short of breath. He has a history of cardiomyopathy, dilated with severely reduced E F, presence of an AICD. He was admitted for heart failure exacerbation, started on IV Lasix and is a lready feeling much better. He is diuresed several liters out already. PAST MEDICAL HISTORY: 1. Ischemic cardiomyopathy with an ejection fraction of 10-20%. 2. Chronic kidney disease stage 4. 3. Anemia of chronic disease. 4. Coronary artery disease with prior stenting. 5. Paroxysmal atrial fibrillation, on chronic anticoagulation with Coumadin. 6. Type 2 diabetes. 7. Obstructive sleep apnea wearing CPAP. 8. Hypertension. 9. Hyperlipidemia. 10. AICD presence. 11. Chronic obstructive pulmonary disease. 12. CVA in the past. 13. Hypothyroidism. 14. Atrial flutter ablation. PAST SURGICAL HISTORY: 1. Left transmetatarsal amputation. 2. Right knee replacement. 3. Carpal tunnel release, right hand. 4. Colonoscopy. OUTPATIENT MEDICATIONS: Include, 1. Coumadin. 2. Simvastatin 20 mg q.p.m. 3. Senna. 4. Omeprazole. 5. Mometasone. 6. Methocarbamol. 7. Levothyroxine 112 mcg a day. 8. [place] p.r.n. 9. Gabapentin. 10. Lasix 4 mg b.i.d. 11. Vitamin B12. 12. Coreg 6.25 b.i.d. 13. Calcitriol. 14. Aspirin 81 a day. 15. Amiodarone 200 mg a day. 16. Allopurinol. 17. Albuterol inhaler p.r.n. ALLERGIES: PLAVIX, IMDUR, PENICILLIN, and TIZANIDINE. SOCIAL HISTORY: Former smoker. No alcohol or drugs. FAMILY HISTORY: Coronary artery disease in mother at 60. REVIEW OF SYSTEMS: A 12-point review of systems was negative unless stated in the history of present illness. PHYSICAL EXAMINATION: VITAL SIGNS: Temperature 97.4, pulse 71, respiratory rate 20, satting 97% on room air, blood pressur e 124/68. GENERAL: Awake, alert, oriented x3, in no distress. HEENT: Normocephalic, atraumatic. NECK: Short, cannot assess JVD. LUNGS: Clear. CARDIOVASCULAR: S1, S2, no S3, S4. There is a grade 2/6 systolic murmur at the right upper sternal border. ABDOMEN: Prominent, but soft. EXTREMITIES: Trace edema. SKIN: Warm and dry. LABORATORY WORK: Reviewed. INR was 2.5, BUN 48, creatinine 3.34, which is at baseline. Troponin wa s in the indeterminate range. CBC with a hemoglobin 10.9, hematocrit of 36, white count of 6.2, plat elet count of 152. His admission BNP was 2828. ASSESSMENT AND PLAN: 1. Acute on chronic systolic heart failure. 2. Ischemic cardiomyopathy, dilated. 3. Presence of an automated implantable cardioverter-defibrillator. 4. Coronary artery disease, stable. No acute coronary syndrome. 5. Grade III/III diastolic dysfunction. PLAN: 1. Continue IV diuresis. He has already put out several liters and is feeling much better. 2. Continue home medications. 3. Doing much better now, probably home in the next 24-48 hours. Thank you for letting us to participate in the care of your patient. We will follow.
[2017-07-19] MEDS: Gabapentin 100 MG CAP PO SCH (20:39)
[2017-07-19] MEDS ORDERED: Atorvastatin Calcium 10 MG TAB PO SCH (21:00)
[2017-07-19] MEDS ORDERED: Simvastatin 20 MG TAB PO SCH (21:00)
[2017-07-20 05:21] LABS: Mean Corpuscular HGB CONC 30.1 g/dL (32.0-36.0); Mean Corpuscular Hemoglobin 27.9 pg (27.0-31.0); Mean Corpuscular Volume 92.7 fl (80.0-94.0); Mean Platelet Volume 9.3 fL (7.4-10.4); Platelet Count 158 thou/uL (130-400); RBC Distribution Width 16.5 % (11.5-14.5); White Blood Cell (WBC) Count 4.9 thou/uL (4.8-10.8)
[2017-07-20 05:27] LABS: INR-International Normal Ratio 2.5; Prothrombin Time 28.2 SEC (12.0-14.7)
[2017-07-20 05:33] LABS: Anion Gap 11 mmol/L (10-20); BUN (Urea Nitrogen) 44 mg/dL (8.4-25.7); Calc. Creatinine Clearance 44 mL/min (70-130); Calcium 9.5 mg/dL (7.8-10.44); Carbon Dioxide 30 mmol/L (23-31); Chloride 103 mmol/L (98-107); Estimated GFR-MDRD 21; Glucose 101 mg/dL (80-115); Magnesium 2.3 mg/dL (1.6-2.6); Potassium 3.5 mmol/L (3.5-5.1); Sodium 140 mmol/L (136-145)
[2017-07-20] MEDS: Furosemide 40 MG/4 ML VIAL SLOW IVP SCH (06:09)
[2017-07-20] MEDS ORDERED: Levothyroxine Sodium 112 MCG TAB PO SCH ×2 (08:00→09:00)
[2017-07-20] MEDS: Gabapentin 100 MG CAP PO SCH (08:40)
[2017-07-20] MEDS: Carvedilol 3.125 MG TAB PO SCH (08:40)
[2017-07-20] MEDS: Docusate 100 MG CAP PO SCH (08:48)
[2017-07-20] MEDS ORDERED: Non-Formulary Item 1 EACH (Cyanocobalamin (Vitamin B-12) [Vitamin B-12] 1,000 MCG) SL SCH (09:00)
[2017-07-20] MEDS ORDERED: Allopurinol 100 MG TAB PO SCH (09:00)
[2017-07-20] MEDS ORDERED: Potassium Chloride 20 MEQ TAB PO SCH (09:00)
[2017-07-20] MEDS ORDERED: Allopurinol 300 MG TAB PO SCH (09:00)
[2017-07-20] MEDS ORDERED: Calcitriol 0.25 MCG CAP PO SCH (09:00)
[2017-07-20] MEDS ORDERED: Cyanocobalamin (Vitamin B-12) 1,000 MCG TAB PO SCH (09:00)
[2017-07-20] MEDS ORDERED: Non-Formulary Item 1 EACH (Omeprazole [Omeprazole] 20 MG) PO SCH (09:00)
[2017-07-20] MEDS ORDERED: Amiodarone 200 MG TAB PO SCH (09:00)
[2017-07-20 12:00] VITALS: BP 114/72; TEMP 98
--- NOTE | 2017-07-20 13:55 | DIS ---
DATE OF ADMISSION: 07/18/2017 DATE OF DISCHARGE: 07/20/2017 DISCHARGE DIAGNOSES: Acute congestive heart failure exacerbation, systolic, chronic respiratory fail ure, type 2 diabetes mellitus, hypothyroidism, paroxysmal atrial fibrillation disease stage 4, [place] artery disease, hypertension, history of cerebrovascular accident. HISTORY OF PRESENT ILLNESS/HOSPITAL COURSE: Mr. Douglas Taylor is a 62-year-old male with a past me dical history of systolic CHF with EF 10-50%, CKD stage 4 and CAD status post stenting, as well as pa roxysmal atrial fibrillation, and type 2 diabetes mellitus who presented to the emergency room with w orsening shortness of breath and chest pain, as well as lower extremity edema. He was seen at [facility] ER and found to be in heart failure with pulmonary vascular congestion seen on x-ray and evide nce of recent weight gain. He was started on IV diuretics with furosemide and admitted for further c are at [facility]. While on admission, he was continued on IV diuresis with marked improvem ent in his volume status. He became euvolemic and was deemed stable for discharge. He was also init iated on CONNIE inhibitor and spironolactone as he had low ejection fraction, congestive heart failure. He was also reviewed by Cardiology and there were no new recommendations. DISCHARGE MEDICATIONS: Potassium chloride 20 mEq every morning, lisinopril 5 mg daily, spironolacton e 25 mg daily, amiodarone 200 mg daily, levothyroxine 112 mcg daily, aspirin 81 mg daily, simvastatin 20 mg at bedtime; warfarin 2.5 mg taking on Wednesday, Wednesday, , Wednesday, Wednesday, and Wednesday; omeprazole 20 mg daily, albuterol sulfate nebulizer every 6 hours as needed, mometasone 100 mcg per inhalation as needed for nasal congestion, Calcitriol 0.25 mcg daily, gabapentin 200 mg twice a day, [place] 7.5 mg tablet 1-2 every 6 hours as needed for pain, albuterol sulfate inhaler 2 puffs every 4 h ours as needed for shortness of breath, Senna 15 mg at bedtime, Robaxin 750 mg twice a day as needed, cyanocobalamin 1000 mcg sublingually daily, allopurinol 300 mg daily, furosemide 400 mg twice a day, carvedilol 6.25 mg twice a day and warfarin 5 mg on Wednesdays. PHYSICAL EXAMINATION: He was examined on the day of discharge. VITAL SIGNS: Temperature 98 degrees Fahrenheit, pulse rate 74, respiratory rate 18, oxygen saturatio n 98% on room air, blood pressure 114/72. GENERAL: Not in acute distress. He is sitting up in bed comfortable. HEENT: Normocephalic, atraumatic. Moist mucous membranes, not pale, anicteric. RESPIRATORY: Vesicular breath sounds bilaterally. No wheezes, rales or rhonchi. CARDIOVASCULAR: Irregular rhythm with regular rate, S1, S2, only with no murmurs, rubs or gallops. ABDOMEN: Soft, nontender, nondistended. Bowel sounds normoactive. EXTREMITIES: No edema. Left TMA. PSYCHIATRIC: Normal mood and affect. NEUROLOGIC: Alert and well oriented to time, place and person. No focal deficits. SKIN: Warm, dry, well perfused. No rashes or lesions. LABORATORY DATA: WBC 4.9, hemoglobin 12, platelet count 158. Sodium 140, potassium 3.5, chloride 10 3, carbon dioxide 20, anion gap 11, BUN 44, creatinine 3.09, glucose 101, calcium 9.5. INR 2.5. IMAGING: Echocardiogram showed EF of 10-15% with grade 3/3 diastolic dysfunction, moderate to severe mitral regurgitation, and mild pulmonic regurgitation. CONSULTS: Cardiology. CONDITION AT DISCHARGE: Stable and improved. DIET: Heart healthy, diabetic. CARE GOALS: Follow up with primary care physician within 1 week of discharge. ACTIVITY: To resume as tolerated. Discharge time 65 minutes including chart review and documentation.
[2017-07-21] MEDS ORDERED: Levothyroxine Sodium 112 MCG TAB PO SCH (06:00)
[2017-07-21] MEDS ORDERED: Potassium Chloride 20 MEQ TAB PO SCH (08:00)
[2017-07-21] MEDS ORDERED: Warfarin Sodium 5 MG TAB PO SCH (17:00)
== END 2017-07-20 12:56 | disposition home or self-care (01) | DRG 291 ==
LOC: ERS 18:44 → 2NO 20:59
PROVIDERS: ADMIT Internal Medicine; ATTEND Internal Medicine
DX: I13.0 Hypertensive heart and chronic kidney disease with heart failure and stage 1 through stage 4 chronic kidney disease, or unspecified chronic kidney disease (principal); I50.23 Acute on chronic systolic (congestive) heart failure; N18.4 Chronic kidney disease, stage 4 (severe); J96.10 Chronic respiratory failure, unspecified whether with hypoxia or hypercapnia; E03.9 Hypothyroidism, unspecified; I48.0 Paroxysmal atrial fibrillation; E11.22 Type 2 diabetes mellitus with diabetic chronic kidney disease; I25.10 Atherosclerotic heart disease of native coronary artery without angina pectoris; I25.5 Ischemic cardiomyopathy; D63.1 Anemia in chronic kidney disease; G47.33 Obstructive sleep apnea (adult) (pediatric); E78.5 Hyperlipidemia, unspecified; Z95.810 Presence of automatic (implantable) cardiac defibrillator; Z96.651 Presence of right artificial knee joint; Z95.5 Presence of coronary angioplasty implant and graft; Z79.01 Long term (current) use of anticoagulants; Z79.899 Other long term (current) drug therapy
CPT/HCPCS: 36415; 36416; 80048; 83036; 83735; 85027; 85610; 93005; 93306; 93798; 94760; A4216; J1940

== ENCOUNTER 2017-10-01 13:32 | Observation (INO) | payer MEDICARE ==
[2017-10-01 14:33] LABS: Troponin I 0.032 ng/mL (< 0.028)
[2017-10-01] MEDS ORDERED: Acetaminophen 650 MG Suppository PR PRN (16:22)
[2017-10-01] MEDS ORDERED: Acetaminophen 325 MG TAB PO PRN (16:22)
[2017-10-01] MEDS ORDERED: Pharmacy to MANAGE WARFARIN PO PRN (16:33)
--- NOTE | 2017-10-01 17:07 | HP ---
DATE OF ADMISSION: 10/01/2017 PRIMARY CARE PROVIDER: Darwin Moseley M.D. CHIEF COMPLAINT: Chest pain. HISTORY OF PRESENT ILLNESS: Mr. Taylor is a pleasant 62-year-old gentleman who was seen at [facility] on 10/01/2017. He reports that he was woken up from sleep from chest pain. He describes it as left-sided , radiating down left arm, sharp in the chest, but dull in the arm, 5-6/10, accompanied by diaphoresis and shortness of breath. He denies any nausea or vomiting. He cannot recall any aggravating or relieving factors. He went to the emergency room at [place] and was subsequently transferred here. After he left the emergency room at [place], the chest pain resolved. He denies any abdominal pain. He denies any cough. REVIEW OF SYSTEMS: All other systems reviewed and found to be negative. PAST MEDICAL HISTORY: Congestive heart failure with ejection fraction of 10%-15 %; chronic kidney disease stage 4; chronic anemia; coronary artery disease, status post PCI with stents; paroxysmal atrial fibrillation, on warfarin therapy ; diabetes mellitus type 2, diet controlled; obstructive sleep apnea syndrome, being treated with CPAP; hypertension; dyslipidemia; COPD, on home oxygen therapy; cerebrovascular accident with no residual paralysis; hypothyroidism. PAST SURGICAL HISTORY: Significant for ablation for atrial flutter, left transmetatarsal amputation, right knee replacement, carpal tunnel release, PCI with coronary stents and defibrillator placement. SOCIAL HISTORY: The patient denies tobacco use, alcohol use or recreational drug use. FAMILY HISTORY: Significant for myocardial infarction in his father. ALLERGIES: Penicillin, isosorbide mononitrate, Plavix CURRENT MEDICATIONS: Omeprazole 20 mg daily, ProAir HFA p.r.n., Lasix 40 mg 2 times a day, carvedilol 6.25 mg 2 times a day, Coumadin as directed by his primary care provider, albuterol 90 mcg inhalation every 4 hours as needed, amiodarone 200 mg daily, vitamin B12/folic acid 1 tablet daily, allopurinol 300 mg daily, gabapentin 200 mg 2 times a day, aspirin 81 mg daily, Synthroid 112 mcg daily, simvastatin 20 mg daily and [place] p.r.n. PHYSICAL EXAMINATION: GENERAL: Mr. Taylor is awake and alert, not in acute distress. He is obese. VITAL SIGNS: Blood pressure is 122/75, pulse 74, respiratory rate 14 and oxygen saturation 94% on 2 liters of oxygen via nasal cannula. He is afebrile. EYES: No scleral icterus. No conjunctival pallor. ENT: Moist mucosal membranes. No oropharyngeal erythema or exudates. NECK: Supple, nontender, trachea is midline. RESPIRATORY: Accessory muscles of breathing are not active. Chest wall movements are symmetric bilaterally. Lungs are clear to auscultation without wheeze, rhonchi or crepitations. CARDIOVASCULAR: S1 and S2 are heard, regular. Peripheral pulses palpable. No carotid bruit. No pericardial rub. ABDOMEN: Soft, nontender, bowel sounds heard. No hepatomegaly or splenomegaly. NEUROLOGIC: Cranial nerves II-XII intact. Deep tendon reflexes are 2+. MUSCULOSKELETAL: Power is 5/5 in all 4 extremities. SKIN: Trace edema of the lower extremities. No rashes or subcutaneous nodules. LYMPHATIC: No cervical lymphadenopathy. PSYCHIATRIC: Normal mood, normal affect. The patient is oriented to person, place and time. LABORATORY DATA: Mr. Taylor's labs and investigations were reviewed. I reviewed his electrocardiogram, which shows electronic atrial paced rhythm, no ST changes to suggest an acute coronary syndrome. I also reviewed his chest x- ray, which does not show any pulmonary infiltrates. He has cardiomegaly. He has normal white count, normocytic anemia with hemoglobin 11.9, normal platelet count, INR 1.9, normal sodium, normal potassium, elevated creatinine of 4.9, his creatinine was 3.54 on 09/06/2017, indeterminate troponin I of 0.032 and elevated BNP of 391.3. LFTs are unremarkable. D-dimer was elevated at 0.86. ASSESSMENT AND PLAN: Mr. Taylor is a pleasant 62-year-old gentleman who was seen at [facility] on 10/01/2017. His problem list includes: 1. Chest pain: Etiology is unclear. He has a history of coronary artery disease. He will be admitted to the hospital for further management including telemetry monitoring and stress test. Cardiology Service has been consulted by emergency room physician. Pulmonary embolism is less likely, given his INR of 1.9. 2. Acute on chronic renal failure: Mr. Taylor is presenting with acute on chronic renal failure. We will consult Nephrology Service for help with management. 3. Congestive heart failure: Appears to be stable. 4. Paroxysmal atrial fibrillation: Continue warfarin therapy. 5. Obstructive sleep apnea syndrome: The patient to use CPAP while asleep. 6. Hypertension: Monitor vital signs, titrate antihypertensives as needed. 7. Dyslipidemia: Continue statin. 8. Chronic obstructive pulmonary disease: Continue home medications and oxygen. Chronic obstructive pulmonary disease appears to be stable. 9. Hypothyroidism: Continue thyroid replacement therapy. Many thanks for allowing me to participate in your patient's care. Please feel free to contact me with any questions or concerns. LEVEL OF RISK: High. LEVEL OF COMPLEXITY: High. MTDD
[2017-10-01] MEDS: Warfarin Sodium 2.5 MG TAB PO SCH (18:09)
[2017-10-01 18:18] VITALS: BMI 41.3
[2017-10-01] MEDS ORDERED: Senokot 8.6 MG TAB PO PRN (18:26)
[2017-10-01] MEDS ORDERED: PROVENTIL INHALER 6.7 G (200 INHALATIONS) INH PRN (18:26)
[2017-10-01] MEDS ORDERED: HYDROcodone/Acetaminophen 7.5/325 mg Tablet PO PRN (18:26)
[2017-10-01] MEDS: Albuterol Sulfate 1.25 MG/3 ML NEB NEB SCH ×2 (19:58→23:20)
[2017-10-01] MEDS: Gabapentin 100 MG CAP PO SCH (20:12)
[2017-10-01] MEDS: Simvastatin 20 MG TAB PO SCH (20:12)
[2017-10-01] MEDS: Carvedilol 6.25 MG TAB PO SCH (20:12)
[2017-10-01] MEDS: Furosemide 40 MG TAB PO SCH (20:12)
[2017-10-01 20:51] LABS: Troponin I 0.042 ng/mL (< 0.028)
[2017-10-02] MEDS: Albuterol Sulfate 1.25 MG/3 ML NEB NEB SCH ×2 (04:14→07:02)
[2017-10-02] MEDS: Levothyroxine Sodium 112 MCG TAB PO SCH (05:06)
[2017-10-02 05:59] LABS: Anion Gap 14 mmol/L (10-20); BUN (Urea Nitrogen) 82 mg/dL (8.4-25.7); Calc. Creatinine Clearance 28 mL/min (70-130); Calcium 9.1 mg/dL (7.8-10.44); Carbon Dioxide 27 mmol/L (23-31); Chloride 102 mmol/L (98-107); Estimated GFR-MDRD 13; Glucose 104 mg/dL (80-115); Potassium 4.4 mmol/L (3.5-5.1); Sodium 139 mmol/L (136-145)
[2017-10-02 07:28] LABS: Band 11 % (5-11); Eosinophils 3 % (0-10); Hemoglobin 11.4 g/dL (14.0-18.0); Lymphocytes 19 % (21-51); MDiff Complete? YES; Mean Corpuscular HGB CONC 32.2 g/dL (32.0-36.0); Mean Corpuscular Hemoglobin 30.8 pg (27.0-31.0); Mean Corpuscular Volume 95.9 fL (78.0-98.0); Mean Platelet Volume 8.5 fL (7.4-10.4); Monocytes 6 % (0-10); Neutrophil 59 % (42-75); Platelet Count 132 thou/uL (130-400); RBC Distribution Width 17.9 % (11.5-14.5); Red Blood Cell (RBC) Count 3.71 mill/uL (4.70-6.10); White Blood Cell (WBC) Count 5.8 thou/uL (4.8-10.8)
[2017-10-02] MEDS ORDERED: Regadenoson 0.4 MG/5 ML SYRINGE ONE (08:04)
--- NOTE | 2017-10-02 10:47 | CON ---
DATE OF CONSULTATION: 10/02/2017 REASON FOR CONSULTATION: Chest pain and shortness of breath. HISTORY OF PRESENT ILLNESS: Mr. Taylor is a pleasant 62-year-old gentleman who is a patient of Dr. Roberto Jacinto. He recently presented with shortness of breath. He also had associated chest pain . He states the shortness of breath noted last several days. No changes in weight, lower extremity edema or PND, orthopnea. He also complained of chest pain that he described as moderate. It lasted for an hour. No ameliorating, exacerbating or precipitating factors present. Mr. Taylor does have a previous history of underlying coronary disease. He has undergone stent chante cement to the circumflex artery. He also has an LVEF of 10%-15% in addition to a creatinine of 4.63. His initial troponin was 0.034 which is felt to be within normal limits based on his current creati nine. PAST MEDICAL HISTORY: 1. CAD. 2. Ischemic cardiomyopathy. 3. Atrial flutter, status post ablation. 4. Advanced chronic kidney disease. 5. Transmetatarsal amputation. 6. Knee surgery. 7. Carpal tunnel release. 8. Status post ICD. 9. Sleep apnea. 10. Hypertension. 11. COPD. 12. CVA. 13. Hypothyroidism. SOCIAL HISTORY: No current tobacco or alcohol use. FAMILY HISTORY: Negative for CAD. HOME MEDICATIONS: Include omeprazole, Coumadin, ProAir, Lasix, albuterol, allopurinol, gabapentin, a spirin, Synthroid, simvastatin, [place]. REVIEW OF SYSTEMS: Ten point review of systems reviewed and as above, otherwise negative. PHYSICAL EXAMINATION: GENERAL: Patient is a pleasant male who is in no acute distress. The patient appears his stated age . VITAL SIGNS: Blood pressure 103/59, pulse 73, temperature 98.1. NEUROLOGIC: The patient is alert and oriented times 3 with no focal neurologic deficits. HEENT: Sclerae without icterus. Mouth has moist mucous membranes with normal pallor. NECK: No JVD. Carotid upstroke brisk. No bruits bilaterally. LUNGS: Clear to auscultation with unlabored respirations. BACK: No scoliosis or kyphosis. CARDIAC: Regular rate and rhythm with normal S1 and S2. No S3 or S4 noted. No significant rubs, murmurs, thrills, or gallops noted throughout the precordium. PMI is not displaced. There is no parasternal heave. ABDOMEN: Soft, nontender, nondistended. No peritoneal signs present. No hepatosplenomegaly. No abnormal striae. EXTREMITIES: 2+ femoral and 2+ dorsalis pedis pulses. No cyanosis, clubbing, or edema. SKIN: No gross abnormalities. PERTINENT LABORATORY DATA: Hemoglobin 11.4, creatinine 4.63 with previous baseline in the 3-4 range. IMAGING DATA: EKG paced. IMPRESSION: 1. Shortness of breath. 2. Chest pain. 3. Ischemic cardiomyopathy. RECOMMENDATIONS: Patient's symptoms can certainly suggest angina. His BNP is somewhat elevated at 3 91, but not consistent with overt fluid overload. Patient is scheduled for noninvasive stress study. At this point, would seem to be a complex situation given his creatinine. I did state that if he n eeded angiography, there is risk for worsening renal function and potential dialysis. At this point, if the scan is felt to be low risk, would treat medically. If felt to be high risk, would then have a nancy conversation about proceeding with angiography with risk of contrast nephropathy. Also, it appears he is allergic to PLAVIX and ISOSORBIDE, which would make it even more difficult to proceed w ith any further intervention.
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
[2017-10-02] MEDS: Gabapentin 100 MG CAP PO SCH ×2 (15:23→21:03)
[2017-10-02] MEDS: Amiodarone 200 MG TAB PO SCH (15:23)
[2017-10-02] MEDS: Calcitriol 0.25 MCG CAP PO SCH (15:23)
[2017-10-02] MEDS: Carvedilol 6.25 MG TAB PO SCH ×2 (15:24→21:03)
[2017-10-02] MEDS: Allopurinol 300 MG TAB PO SCH (15:24)
[2017-10-02] MEDS: Furosemide 40 MG TAB PO SCH ×2 (15:24→21:03)
[2017-10-02] MEDS: Cyanocobalamin (Vitamin B-12) 1,000 MCG TAB PO SCH (15:24)
[2017-10-02] MEDS: Fluticasone Propionate Nasal Spray 16 gm Bottle NASAL SCH (15:24)
--- NOTE | 2017-10-02 17:07 | PDOC.PN ---
- Subjective Encounter Start Date: 10/02/17 Encounter Start Time: 17:06 Pt seen for followup re: chest pain. Denies chest pain at this time, no nausea or vomiting. - Objective MAR Reviewed: Yes Vital Signs & Weight: Vital Signs (12 hours) Temp Pulse Resp BP Pulse Ox 10/02/17 15:58 97.5 F L 72 18 118/67 97 10/02/17 11:05 98.1 F 70 15 103/57 L 89 L 10/02/17 08:21 98.1 F 73 16 10/02/17 07:41 98.1 F 73 16 103/59 L 99 10/02/17 07:06 99 10/02/17 07:02 81 18 99 Weight Weight 264 lb 14.4 oz I&O: 10/01/17 10/02/17 10/03/17 06:59 06:59 06:59 Intake Total 1250 Output Total 2700 Balance -1450 Result Diagrams: 10/02/17 05:03 10/02/17 05:03 EKG Reviewed by me: Yes (Tele: NSR, [facility] electronic pacing) Phys Exam - Physical Examination Morbid obesity HEENT: moist MMs, sclera anicteric, oral pharynx no lesions, 2+ tonsils Neck: no nodes, no JVD, supple, full ROM Respiratory: no wheezing, no rales, no rhonchi, clear to auscultation bilateral Cardiovascular: RRR, no rub S1, s2 Gastrointestinal: soft, non-tender, no distention, positive bowel sounds Neurological: moves all 4 limbs Psychiatric: normal affect, A&O x 3 Dx/Plan (1) Chest pain Code(s): R07.9 - CHEST PAIN, UNSPECIFIED Status: Acute Comment: Improved, await stress test (2) Acute on chronic renal failure Code(s): N17.9 - ACUTE KIDNEY FAILURE, UNSPECIFIED; N18.9 - CHRONIC KIDNEY DISEASE, UNSPECIFIED Status: Acute Comment: creatinine improving (3) COPD (chronic obstructive pulmonary disease) Status: Chronic Qualifiers: COPD type: chronic bronchitis Comment: stable, continue oxygen as at home (4) HLD (hyperlipidemia) Code(s): E78.5 - HYPERLIPIDEMIA, UNSPECIFIED Status: Chronic Qualifiers: Hyperlipidemia type: unspecified Qualified Code(s): E78.5 - Hyperlipidemia , unspecified Comment: continue statin (5) HTN (hypertension) Code(s): I10 - ESSENTIAL (PRIMARY) HYPERTENSION Status: Chronic Qualifiers: Hypertension type: essential hypertension Qualified Code(s): I10 - Essential (primary) hypertension Comment: controlled (6) WALTER on CPAP Code(s): G47.33 - OBSTRUCTIVE SLEEP APNEA (ADULT) (PEDIATRIC); Z99.89 - DEPENDENCE ON OTHER ENABLING MACHINES AND DEVICES Status: Chronic (7) Paroxysmal a-fib Code(s): I48.0 - PAROXYSMAL ATRIAL FIBRILLATION Status: Chronic Comment: Continue Coumadin. - Plan * . Review of Systems - Review of Systems Constitutional: negative: fever, chills, sweats, weakness, malaise Respiratory: negative: Cough, Shortness of Breath, SOB with Excertion, Pleuritic Pain, Wheezing Cardiovascular: negative: chest pain, palpitations, orthopnea, paroxysmal nocturnal dyspnea, edema, light headedness Gastrointestinal: negative: Nausea, Vomiting, Abdominal Pain, Diarrhea, Constipation, Melena, Hematochezia, Other Genitourinary: negative: Dysuria, Frequency, Incontinence, Hematuria, Retention Skin: negative: Rash, Lesions, Johnny, Bruising - Medications/Allergies Allergies/Adverse Reactions: Allergies Allergy/AdvReac Type Severity Reaction Status Date / Time clopidogrel bisulfate Allergy Mild Verified 07/18/17 22:42 [From Plavix] isosorbide mononitrate Allergy Mild Verified 07/18/17 22:42 [From Imdur] Penicillins Allergy Mild Verified 07/18/17 22:42 tizanidine Allergy Verified 07/18/17 22:42 Medications: Current Medications Acetaminophen (Tylenol) 650 mg PO Q4H PRN PRN Reason: Headache/Fever or Pain Acetaminophen (Tylenol) 650 mg [place] Q4H PRN PRN Reason: Headache/Fever or Pain Hydrocodone Bitart/Acetaminophen ([place] 7.5/325) 1 tab PO Q6H PRN PRN Reason: Pain 4-6 Albuterol Sulfate (Proventil Hfa) 2 puff INH Q4HR PRN PRN Reason: SOB &/or Wheezing Allopurinol (Zyloprim) 300 mg PO DAILY [facility] Last Admin: 10/02/17 15:24 Dose: 300 mg Amiodarone HCl (Cordarone) 200 mg PO DAILY [facility] Last Admin: 08/18/18 15:23 Dose: 200 mg Aspirin (Aspirin Chewable) 81 mg PO DAILY [facility] Last Admin: 10/02/17 15:23 Dose: 81 mg Calcitriol (Rocaltrol) 0.25 mcg PO DAILY [facility] Last Admin: 10/02/17 15:23 Dose: 0.25 mcg Carvedilol (Coreg) 6.25 mg PO BID [facility] Last Admin: 10/02/17 15:24 Dose: 6.25 mg Cyanocobalamin (Vitamin B-12) 1,000 mcg PO DAILY [facility] Last Admin: 10/02/17 15:24 Dose: 1,000 mcg Fluticasone Propionate (Flonase Nasal [place]) 0 gm NASAL DAILY [facility] Last Admin: 10/02/17 15:24 Dose: Not Given Furosemide (Lasix) 40 mg PO BID [facility] Last Admin: 10/02/17 15:24 Dose: 40 mg Gabapentin (Neurontin) 200 mg PO BID [facility] Last Admin: 10/02/17 15:23 Dose: 200 mg Levothyroxine Sodium (Synthroid) 112 mcg PO 0600 [facility] Last Admin: 10/02/17 05:06 Dose: 112 mcg Miscellaneous Medication (Pharmacy To Dose) 1 each PO PRN PRN PRN Reason: . Pantoprazole Sodium (Protonix) 40 mg PO DAILY PRN PRN Reason: Indigestion Senna (Senokot) 2 tab PO HS PRN PRN Reason: Constipation Simvastatin (Zocor) 20 mg PO QPM [facility] Last Admin: 10/01/17 20:12 Dose: 20 mg Warfarin Sodium (Coumadin) 5 mg PO We@1700 [facility] Warfarin Sodium (Coumadin) 2.5 mg PO SuMoTuThFrSa@1700 [facility] Last Admin: 10/01/17 18:09 Dose: 2.5 mg
[2017-10-02] MEDS: Warfarin Sodium 2.5 MG TAB PO SCH (17:29)
[2017-10-02] MEDS: Simvastatin 20 MG TAB PO SCH (21:03)
[2017-10-03] MEDS: Levothyroxine Sodium 112 MCG TAB PO SCH (05:12)
[2017-10-03 05:50] LABS: #Eosinphils 0.3 thou/uL (0.0-0.7); #Lymphocytes 0.8 thou/uL (1.20-3.40); #Monocytes 0.5 thou/uL (0.11-0.59); #Neutrophils 3.1 thou/uL (1.40-6.50); %Basophils 0.2 % (0.0-1.0); %Eosinophils 6.2 % (0.0-10.0); %Lymphocytes 17.7 % (21.0-51.0); %Monocytes 11.1 % (0.0-10.0); %Neutrophils 64.8 % (42.0-75.0); Hemoglobin 12.1 g/dL (14.0-18.0); Mean Corpuscular HGB CONC 33.1 g/dL (32.0-36.0); Mean Corpuscular Hemoglobin 31.6 pg (27.0-31.0); Mean Corpuscular Volume 95.5 fL (78.0-98.0); Mean Platelet Volume 8.3 fL (7.4-10.4); Platelet Count 143 thou/uL (130-400); RBC Distribution Width 17.9 % (11.5-14.5); Red Blood Cell (RBC) Count 3.81 mill/uL (4.70-6.10); White Blood Cell (WBC) Count 4.7 thou/uL (4.8-10.8)
[2017-10-03 06:10] LABS: Anion Gap 14 mmol/L (10-20); BUN (Urea Nitrogen) 73 mg/dL (8.4-25.7); Calc. Creatinine Clearance 32 mL/min (70-130); Calcium 9.2 mg/dL (7.8-10.44); Carbon Dioxide 23 mmol/L (23-31); Chloride 102 mmol/L (98-107); Estimated GFR-MDRD 15; Glucose 107 mg/dL (80-115); Sodium 135 mmol/L (136-145)
[2017-10-03] MEDS: Allopurinol 300 MG TAB PO SCH (10:36)
[2017-10-03] MEDS: Cyanocobalamin (Vitamin B-12) 1,000 MCG TAB PO SCH (10:36)
[2017-10-03] MEDS: Calcitriol 0.25 MCG CAP PO SCH (10:36)
[2017-10-03] MEDS: Gabapentin 100 MG CAP PO SCH (10:36)
[2017-10-03] MEDS: Carvedilol 6.25 MG TAB PO SCH (10:36)
[2017-10-03] MEDS: Fluticasone Propionate Nasal Spray 16 gm Bottle NASAL SCH (10:37)
[2017-10-03] MEDS: Amiodarone 200 MG TAB PO SCH (10:37)
[2017-10-03] MEDS: Furosemide 40 MG TAB PO SCH (10:37)
--- NOTE | 2017-10-03 10:57 | NM ---
NUCLEAR MEDICINE CARDIAC PERFUSION EXAMINATION WITH EJECTION FRACTION: HISTORY: 62-year-old male with chest pain. History of myocardial infarction. Status post stent placement. COMPARISON: 12/03/14. TECHNIQUE: A two day nuclear medicine cardiac perfusion examination was performed. Rest images were obtained usi ng 30.4 mCi of technetium-99m sestamibi. Stress images were obtained using 28.3 mCi of technetium-99m sestamibi and Lexiscan. FINDINGS: Tomographic images show a large size, moderate to severe intensity, perfusion defect along the latera l wall extending to the apex. This is stable without evidence of reversibility to suggest ischemia. G ated images show global hypokinesis with a poor ejection fraction of 23%. EDV: 340 ml LHR: 0.4 TID: 1.0 IMPRESSION: 1. No evidence of ischemia. 2. Global hypokinesis and poor ejection fraction. 3. Fixed perfusion defect along the lateral wall likely represents the patient's area of prior infar ction. POS: NEAL
--- NOTE | 2017-10-03 11:18 | PRG ---
DATE OF SERVICE: 10/03/2017 SUBJECTIVE: Mr. Taylor is a 62-year-old white male who was admitted for chest pain, shortness of b reath. We were consulted for his acute kidney injury on top of his chronic renal failure. He has be en ruled out for MD. He underwent a cardiac stress test this morning. He voices no new complaints. He denies any chest pain or shortness of breath. PHYSICAL EXAMINATION: VITAL SIGNS: Blood pressure is 144/56, heart rate 76, respiratory rate 14, temperature 98.2, and pul se ox 95%. GENERAL: Noted to be awake, alert, comfortable, not in distress. SKIN: Adequate turgor. HEENT: He has pinkish conjunctivae, anicteric sclerae. NECK: No neck mass, no carotid bruits, no JVD. CHEST: No deformities. LUNGS: Clear breath sounds. No wheezing, no crackles. HEART: Normal sinus rhythm. No murmur, no gallops or rubs. ABDOMEN: Globular, soft, nontender, no masses. EXTREMITIES: Trace edema. MEDICATIONS: 10/03/2017 was reviewed. LABORATORY DATA: Laboratories of 10/03/2017, white count 4.7, hemoglobin 12.1. Sodium 135, potassiu m 4.0, chloride 102, carbon dioxide 23, BUN 73, creatinine 4.14, glucose 107, calcium 9.2. On 10/02/2017, creatinine 4.63. On 10/01/2017, creatinine 4.9. ASSESSMENT AND PLAN: 1. Acute kidney injury on top of his chronic renal failure, improving creatinine. He is tolerating the current diuretic regimen. He is now currently on p.o. Lasix. I will probably continue the same diuretic regimen. No indication for any dialytic intervention with this patient. 2. No chest pains/shortness of breath, clinically improving. No chest pain, shortness of breath. T olerating the diuretic regimen. Awaiting for results of the cardiac stress test. 3. Acute kidney injury on top of his chronic renal failure - superimposed hemodynamically mediated r enal dysfunction. He is tolerating the current Lasix regimen. No changes to be made. Please note t here is no indication for any emergent dialytic intervention with this patient. We are awaiting for the rest of the cardiac stress test. The possibility of a cardiac catheterization remains. If that should be the case, we are ready for a backup hemodialysis with this patient. Agree with current management. Recheck base met and CBC in a.m. if needed.
[2017-10-03 11:26] VITALS: BP 103/64; TEMP 98.2
--- NOTE | 2017-10-03 19:16 | DIS ---
DATE OF ADMISSION: 10/01/2017 DATE OF DISCHARGE: 10/03/2017 PRIMARY CARE PROVIDER: Darwin Moseley M.D. DISCHARGE DIAGNOSES: 1. Chest pain. 2. Acute on chronic renal insufficiency. CONDITION OF PATIENT ON THE DAY OF DISCHARGE: Stable. I assessed Mr. Taylor on the day of dischar . He denies any chest pain or shortness of breath. Vital signs are stable. S1 and S2 are heard, regular. Lungs are clear to auscultation bilaterally. CONSULTATIONS DURING THIS HOSPITALIZATION: Cardiology, Dr. Vasques and Nephrology, Dr. Mckinley. HOSPITAL COURSE: Mr. Taylor is a pleasant 62-year-old gentleman who was admitted to [facility] on 10/01/2017 for chest pain. Please refer to my history and physical note dated 10/01/2017 for further details. At the time of admission, he also had acute on chronic renal insuff iciency. Creatinine improved during this hospitalization. He was seen by Nephrology and Cardiology services. He underwent nuclear stress test on 10/02/2017. The stress test did not show any evidence of ischemia. He had global hypokinesis and poor ejection fraction, which was already known. He als o had a fixed perfusion defect along the lateral wall, likely representing the area of prior infarcti on. He improved clinically, with resolution of chest pain. He is being discharged home in a stable condi tion. DISCHARGE MEDICATIONS: No changes were made to the patient's preadmission home medications as dictat ed on my history and physical note dated 10/01/2017. On the day of discharge, he has white count 4700, hemoglobin 12.1, platelet count 143,000. Sodium 13 5, potassium 4.0, blood urea nitrogen 73 and creatinine 4.14. Many thanks for allowing me to participate in your patient's care. Please feel free to contact me wi th any questions or concerns. DISCHARGE DESTINATION: Home.
[2017-10-06] MEDS ORDERED: Warfarin Sodium 5 MG TAB PO SCH (17:00)
--- NOTE | 2017-10-09 17:13 | EKG ---
Test Reason : Blood Pressure : / mmHG Vent. Rate : 071 BPM Atrial Rate : 071 BPM P-R Int : 240 ms QRS Dur : 162 ms QT Int : 534 ms P-R-T Axes : 007 -44 113 degrees QTc Int : 580 ms Electronic atrial pacemaker Left axis deviation Left bundle branch block Abnormal ECG Confirmed by LAURENCE VELÁZQUEZ DO ([id number]), website/blog editor DALLAS ESTRADA ([id number]) on 10/09/2017 5:13:11 PM Referred By: Confirmed By:LAURENCE VELÁZQUEZ DO
== END 2017-10-03 14:22 | disposition home or self-care (01) ==
LOC: ERS 13:32 → 2SW 15:52
PROVIDERS: ADMIT Internal Medicine; ATTEND Internal Medicine
DX: R07.9 Chest pain, unspecified (principal); I13.0 Hypertensive heart and chronic kidney disease with heart failure and stage 1 through stage 4 chronic kidney disease, or unspecified chronic kidney disease; E11.22 Type 2 diabetes mellitus with diabetic chronic kidney disease; N18.4 Chronic kidney disease, stage 4 (severe); I50.9 Heart failure, unspecified; N17.9 Acute kidney failure, unspecified; D63.1 Anemia in chronic kidney disease; I25.10 Atherosclerotic heart disease of native coronary artery without angina pectoris; I48.0 Paroxysmal atrial fibrillation; G47.33 Obstructive sleep apnea (adult) (pediatric); E78.5 Hyperlipidemia, unspecified; J44.9 Chronic obstructive pulmonary disease, unspecified; E03.9 Hypothyroidism, unspecified; I25.5 Ischemic cardiomyopathy; I48.92 Unspecified atrial flutter; M10.9 Gout, unspecified; E11.51 Type 2 diabetes mellitus with diabetic peripheral angiopathy without gangrene; Z86.73 Personal history of transient ischemic attack (TIA), and cerebral infarction without residual deficits; Z87.891 Personal history of nicotine dependence; Z79.01 Long term (current) use of anticoagulants; Z79.82 Long term (current) use of aspirin; Z79.899 Other long term (current) drug therapy; Z88.0 Allergy status to penicillin; Z88.8 Allergy status to other drugs, medicaments and biological substances; Z95.5 Presence of coronary angioplasty implant and graft; Z99.89 Dependence on other enabling machines and devices; Z99.81 Dependence on supplemental oxygen; Z95.810 Presence of automatic (implantable) cardiac defibrillator
CPT/HCPCS: 78452; 80048 ×2; 84484; 85025 ×2; 93005; 93017; 94640 ×3; 94760 ×4; 99285; A9500; G0378 ×2; 36415; J2785